=== PATIENT | female | born 1960 | race Caucasian/White ===

== ENCOUNTER 2023-09-02 09:43 | Emergency (ER) | payer OTHER, SELFPAY ==
[2023-09-02] VITALS (59 sets, daily range): BP systolic 63–139; BP diastolic 36–100; PULSE 73–126; RESP 11–29; TEMP 36.4–36.6; O2SAT 91–99
--- NOTE | ~2023-09-02 | US_ITS ---
US right upper quadrant INDICATION: Right upper quadrant pain. Emesis. PROCEDURE: Realtime right upper abdominal ultrasound. COMPARISON: No prior studies for comparison. FINDINGS: The pancreas is normal without focal mass or pancreatic ductal dilation. Liver echotexture is normal without focal mass or intrahepatic biliary dilatation. There is normal directional flow i n the portal vein. There are gallstones. Possible stone in the common duct. Common bile duct measures 7.4 mm. No sonog raphic Garner's sign. IMPRESSION: 1: Cholelithiasis with possible choledocholithiasis. Mild biliary dilatation. Consider cholecystitis in the appropriate clinical setting. Consider correlation with MRCP. Reviewed, dictated and finalized at location L. TABLE OPERATOR IMPRESSION: 1: Cholelithiasis with possible choledocholithiasis. Mild biliary dilatation. C onsider cholecystitis in the appropriate clinical setting. Consider correlation with MRCP.
--- NOTE | ~2023-09-02 | CT_ITS ---
EXAMINATION: CT abdomen pelvis w con DATE: 09/02/2023 11:33 INDICATION: Nausea vomiting and right upper quadrant abdominal pain TECHNIQUE: Computed tomography (CT) of the abdomen and pelvis was performed with 100 mL Omnipaque-350 intravenous contrast. Automated exposure control and iterative reconstruction technique were employe d. The dose-length product was 1344.67 mGy-cm. COMPARISON: None FINDINGS: Lung bases are clear. Heart size is normal. No pericardial or pleural effusion. There is a small dens ity along the cephalad-most images at the cavoatrial junction suggesting a possible central venous ca theter tip . Small sliding-type hiatal hernia. Multiple splenic ossifications consistent with old gra nulomatous disease. Focal hepatic steatosis at the ligamentum teres. Gallbladder, pancreas and left a drenal gland are normal. Main pancreatic duct and common bile duct are normal and there is no intrahe patic ductal or ductal dilation. 1.8 cm right adrenal nodule. 2.5 cm cyst at the upper pole of the ri ght kidney. There a few additional <5 mm likely cysts in both kidneys. There is moderate colonic dive rticulosis with a sigmoid predominance. There is no adjacent inflammatory change to suggest divertic ulitis. No bowel obstruction. The appendix is not visualized. No pericecal inflammatory change to sug gest acute appendicitis. Infraumbilical midline surgical scar. The uterus is not identified and has l ikely been surgically resected. Bladder is normal. No free intraperitoneal gas or fluid. No pathologi john enlarged abdominal or pelvic lymphadenopathy. IMPRESSION: 1. No acute intra-abdominal/pelvic process. 2. Small sliding-type hiatal hernia. 3. Diverticulosis. 4. Indeterminate 1.8 cm right adrenal nodule statistically most likely to represent an adenoma. Recom mend correlation with any prior outside imaging. If prior imaging is not available for comparison and patient has no prior history of malignancy would recommend 12 month follow-up pre and postcontrast a drenal protocol CT or MRI. If patient has a known prior history of malignancy would currently further evaluate with pre and postcontrast adrenal protocol CT or MRI. Reviewed, dictated and finalized at location A. NTORY COORDINATOR IMPRESSION: 1. No acute intra-abdominal/pelvic process. 2. Small sliding-type hiatal hernia. 3. Diverticulosis. 4. Indeterminate 1.8 cm right adrenal nodule statistically most likely to repre sent an adenoma. Recommend correlation with any prior outside imaging. If prior imaging is not available for comparison and patient has no prior history of ma lignancy would recommend 12 month follow-up pre and postcontrast adrenal protoc ol CT or MRI. If patient has a known prior history of malignancy would currentl y further evaluate with pre and postcontrast adrenal protocol CT or MRI.
--- NOTE | 2023-09-02 09:56 | ED.URI ---
HPI - URI/Sore Throat General Chief Complaint: Nausea/Vomiting/Diarrhea Stated Complaint: vomiting/ diarrhea Time Seen by Provider: 09/02/23 09:51 Source: patient and RN notes reviewed Mode of arrival: ambulatory Limitations: no limitations History of Present Illness MD elicited complaint: cough Onset (ago): day(s) (5) Consistency: intermittent Severity: moderate Description of mucous: clear Able to tolerate fluids by mouth: Yes Exacerbating factors: other (eating) Relieving factors: nothing Associated symptoms: headache, nausea, vomiting and diarrhea Treatments prior to arrival: none Related Data Home Medications Medication Instructions Recorded Confirmed Unable to Obtain Home Medications 09/02/23 09/02/23 Allergies Allergy/AdvReac Type Severity Reaction Status Date / Time lisinopril Allergy Cough Verified 09/02/23 09:53 [facility] Past Medical History Medical History (Updated 09/02/23 @ 15:39 by James Hoffmann MD) Diverticulitis Hypertension Hypothyroidism Ovarian cancer Surgical History Surgical History (Updated 09/02/23 @ 10:17 by James Hoffmann MD) H/O oophorectomy right ovary History of total abdominal hysterectomy Previous back surgery Social History Social History (Updated 09/02/23 @ 10:17 by James Hoffmann MD) Smoking status: Never smoker Exam Const: General: no acute distress, alert and ill appearing acutely Nutritional Appearance: well nourished and obese Orientation/consciousness: patient oriented x3 Limitations: no limitations HENMT: Head: normal to inspection Ears: external ears normal Face/Nose/Sinus: Normal external nose present Face and sinus: normal facial exam Mouth: Yes moist mucous membranes Eyes: Conjunctivae: conjunctivae normal Pupils: Equal, round and reactive pupils present EOM: EOMs intact bilaterally Neck: Neck: normal visual inspection Resp: Effort & Inspection: normal respiratory effort Auscultation: clear to auscultation bilaterally Cardio: Rate: regular rate Rhythm: regular rhythm GI: GI Palp: Yes Soft to palpation, Yes Tenderness to palpation present (GI) ( moderate right upper quadrant left lower quadrant, positive Garner sign) and Yes Guarding due to palpation present (GI) ( mild) Auscultation: normal bowel sounds Back/Spine/Pelvis: Cervical Spine: cervical ROM normal Thoracic/Lumbar Spine: thoraco-lumbar ROM normal Skin: General skin exam: normal color Rashes: no rashes Neuro: General: patient oriented x3, moves all extremities, no focal motor deficits and CN's II-XI intact bilaterally Speech: normal speech Gait exam (Neuro): Normal gait present Extrem: General: normal to inspection and no clubbing, cyanosis or edema Psych: Mental Status: mental status grossly normal Affect: normal affect Attitude: cooperative Course Course Emergency Course: patient received 2 L normal saline. She also received some Zofran and a potassium rider for low potassium. Vital Signs Vital signs: Vital Signs Temperature 36.4 C L 09/02/23 09:43 Pulse Rate 116 H 09/02/23 09:43 Respiratory Rate 20 09/02/23 09:43 Blood Pressure 139/90 09/02/23 09:43 Pulse Oximetry 95 09/02/23 09:43 Oxygen Delivery Room Air 09/02/23 09:43 Temperature 36.6 C 09/02/23 16:35 Pulse Rate 98 09/02/23 16:35 Respiratory Rate 25 H 09/02/23 16:35 Blood Pressure 109/80 09/02/23 16:35 Pulse Oximetry 95 09/02/23 16:35 Oxygen Delivery Room Air 09/02/23 16:35 Transfer Transfered to: [place] Accepting physician: Dr. Galvez and Lucia Galeas, MAGO MDM - URI/Sore Throat Differential Diagnosis Differential diagnosis: Likely upper respiratory infection, viral infection, influenza and other ( COVID, cholecystitis, electrolyte abnormality, anemia, diverticulitis, gastroenteritis) Lab Data Attestation: I reviewed the patient's lab results. 09/02/23 10:26 09/02/23 10:26 Labs: Lab Results 09/02/23 09/02/23 Ran
[2023-09-02] MEDS: SODIUM CHLORIDE 0.9% IV 1,000 ML 999 ML IV CONT ×2 (10:30→12:38)
[2023-09-02 10:33] LABS: Hematocrit 40.3 % (35.0-49.0); Hemoglobin 13.7 g/dL (12.0-15.0); Mean Corpuscular Hemoglobin 32.4 pg (27.0-31.0); Mean Corpuscular Volume 95.3 fL (78.0-102.0); Mean Platelet Volume 8.8 fl (9.2-11.8); Platelet Count Result 389 K/mm3 (150-420); Red Blood Count 4.23 M/mm3 (4.20-5.40); Red Cell Distribution Width 13.8 % (11.6-14.4); White Blood Count 5.4 K/mm3 (4.8-10.8)
[2023-09-02 10:45] LABS: Band Neutrophils Percent 8 % (0-6); Basophils Percent Manual 0 % (0-1); Eosinophils Absolute Manual 0.05 K/mm3 (0.02-0.5); Eosinophils Percent Manual 1 % (1-6); Lymphocytes Absolute Manual 1.13 K/mm3 (1.1-4.5); Lymphocytes Percent Manual 21 % (18-44); Metamyelocytes Percent 2 %; Monocytes Absolute Manual 0.27 K/mm3 (0.1-0.90); Monocytes Percent Manual 5 % (3-9); Myelocytes Percent 0 %; Neutrophils Absolute Manual 3.83 K/mm3 (1.7-7.2); Neutrophils Percent Manual 63 % (46-73); Platelet Estimate Adequate (Adequate); Total Cells Counted 100
[2023-09-02 10:46] LABS: Alanine Aminotransferase 38 U/L (14-59); Albumin Level 2.2 g/dL (3.4-5.0); Alkaline Phosphatase 56 U/L (46-116); Anion Gap 10 mmol/L (8-16); Aspartate Amino Transferase 33 U/L (15-37); Bilirubin Direct 0.1 mg/dL (0-0.2); Bilirubin,Total 0.3 mg/dL (0.00-1.00); Blood Urea Nitrogen 22 mg/dL (7-18); Calcium 8.1 mg/dL (8.5-10.1); Carbon Dioxide 27 mmol/L (21-32); Chloride 95 mmol/L (98-108); Estimated CRCL calculation 70 ml/min; Estimated Glomerular Filt Rate > 60; Glucose 141 mg/dL (70-99); Lipase 119 U/L (16-77); Osmolality Calculated 279 mOsm/kg (285-295); Sodium 132 mmol/L (136-145); Total Protein 5.4 g/dL (6.4-8.2)
[2023-09-02 10:49] LABS: Influenza A QL RT-PCR Negative (Negative); Influenza B QL RT-PCR Negative (Negative); SARS-CoV-2 RNA PCR Negative (Negative)
[2023-09-02 10:50] LABS: Lactic Acid Reflex 2.1 mmol/L (0.4-2.0)
[2023-09-02] MEDS: KCL 20 MEQ/SW 100 ML 100 ML 50 MEQ IVPB (11:02)
[2023-09-02] MEDS: ONDANSETRON INJ 4 MG/2 ML VIAL IV PUSH (13:23)
[2023-09-02 13:30] LABS: Reflex Lactic Acid Yes or No Add Lactic
[2023-09-02 14:40] LABS: CRP 2.7 mg/dL (0.0-0.9)
== END 2023-09-02 16:35 | disposition short-term general hospital (02) ==
PROVIDERS: Emergency Provider Emergency Medicine; PCP Internal Medicine
DX: K81.9 Cholecystitis, unspecified (principal); E87.1 Hypo-osmolality and hyponatremia; E87.6 Hypokalemia; I10 Essential (primary) hypertension; E03.9 Hypothyroidism, unspecified; Z85.43 Personal history of malignant neoplasm of ovary; Z20.822 Contact with and (suspected) exposure to COVID-19
CPT/HCPCS: 36415; 74177; 76705; 80053; 82248; 83605; 83690; 85025; 86140; 87636; 96361; 96365; 96366; 96375; 99285; J2405; J3480; J7030; Q9967

== ENCOUNTER 2023-09-02 17:23 | Observation (INO) | payer OTHER, SELFPAY ==
--- NOTE | ~2023-09-02 | MR_ITS ---
EXAMINATION: MR MRCP wo/w con/w 3D wo ind DATE: 09/03/2023 11:36 INDICATION: Abdominal pain., Cholelithiasis and possible choledocholithiasis. TECHNIQUE: Magnetic resonance imaging (MRI) of the abdomen was performed without and with 20 mL Multi michi intravenous contrast. Sequences included coronal T2-weighted SS-FSE, coronal T2-weighted FS SS- FSE, coronal T2-weighted FS FIESTA, axial T2-weighted FS FIESTA, axial T2-weighted FIESTA, sagittal T 2-weighted SS-FSE, axial and coronal T1-weighted dual-echo FSPGR, axial T2-weighted SS-FSE, axial T1- weighted LAVA, axial T2-weighted STIR FSE. Thick-slab T2-weighted FRFSE-XL images were obtained for m agnetic resonance cholangiopancreatography (MRCP). Rotating maximum intensity projection 3-D reconstr uctions of the volumetric data were created by the technologist. Postcontrast sequences included a ti me course of axial T1-weighted LAVA. COMPARISON: None. FINDINGS: ABDOMEN MRI: Heart size is normal. No pericardial or pleural effusion. The distal tip of a likely central venous c atheter is seen at the superior cavoatrial junction. Small sliding-type hiatal hernia. Liver is edwin l with no intrahepatic biliary ductal dilation. Multiple gallstones layering in the dependent aspect of the gallbladder which is dilated to 5.0 cm with mild edematous wall thickening versus very small a mount of pericholecystic fluid suspicion for acute cholecystitis. Numerous small low signal intensity splenic calcified splenic nodules consistent with old granulomatous disease. Pancreas and left adren al gland are normal. 1.8 cm right adrenal adenoma with diagnostic prominent signal dropout on opposed phase imaging consistent with intracellular lipid. A few bilateral T2 hyperintense nonenhancing mauro l cysts the largest measuring 2.8 cm on the right at the remaining less than 1 cm. There are few scat tered colonic diverticula without adjacent comparison to suggest diverticulitis. There is a large div erticulum arising from the junction of the second and third portions of the duodenum which measures u p to 8.2 x 5.8 cm in maximal transaxial dimensions. No bowel obstruction. No pathologically enlarged abdominal or upper pelvic lymphadenopathy. Severe lumbar and moderate thoracic spondylosis. Couple T1 hyperintense fat saturating hemangiomas in the thoracic spine. No pathologic marrow replacing proces s. ABDOMEN MRCP: Common bile duct is dilated to 9 mm in the proximal duct but which tapers smoothly at the distal duct with no intraluminal filling defects to suggest choledocholithiasis. The main pancreatic duct is nor mal. No intrahepatic ductal or ductal dilation. IMPRESSION: 1. Multiple gallstones within the dilated gallbladder with associated mild edematous gallbladder wall thickening versus minimal pericholecystic fluid suggestive of acute cholecystitis. 2. Common bile duct dilated to 9 mm without evident or obstructing lesion/choledocholithiasis or intr ahepatic biliary ductal dilation. 3. 1.8 cm intracellular lipid-containing right adrenal adenoma with characteristic signal dropout on opposed phase imaging. 4. Small sliding-type hiatal hernia. Reviewed, dictated and finalized at location A. LER TESTER IMPRESSION: 1. Multiple gallstones within the dilated gallbladder with associated mild brittny atous gallbladder wall thickening versus minimal pericholecystic fluid suggesti ve of acute cholecystitis. 2. Common bile duct dilated to 9 mm without evident or obstructing lesion/dea docholithiasis or intrahepatic biliary ductal dilation. 3. 1.8 cm intracellular lipid-containing right adrenal adenoma with characteris tic signal dropout on opposed phase imaging. 4. Small sliding-type hiatal hernia.
[2023-09-02 18:06] VITALS: BP 117/71; PULSE 78; RESP 16; TEMP 36.3; O2SAT 94
[2023-09-02 18:09] VITALS: BMI 35.2
--- NOTE | 2023-09-02 18:11 | PC.NURSE ---
This patient, Lamar Melendez, was admitted to Medical Room 345-01. Patient/family oriented to hospital policies and general routines including ID bracelet, bed and alarms, visiting hours, pain management, procedures, bathroom and other care routines, personal items, smoking policy, room service/diet, and visiting hours. Information on how to activate the Rapid Response Team has been discussed. Patient/Family are encouraged to report perceived risks to care and to ask questions if they do not understand what they are told or what they should do.
[2023-09-02] MEDS: SODIUM CHLORIDE 0.9% IV 1,000 ML 100 ML IV CONT (18:32)
--- NOTE | 2023-09-02 20:04 | PM.IMHP ---
H&P: HPI History of Present Illness Date/Time: 09/02/23 20:04 Chief Complaint: n/v Narrative: THIS IS A 62-YEAR-OLD FEMALE WITH PAST MEDICAL HISTORY SIGNIFICANT FOR OVARIAN CANCER, HYPERTENSION, HYPOTHYROIDISM. PATIENT PRESENTS TO THE EMERGENCY ROOM DUE TO NAUSEA VOMITING ABDOMINAL PAIN FOR SEVERAL DAYS UNABLE TO KEEP ANYTHING DOWN. PATIENT DENIES ANY FEVERS, RIGORS, CHILLS, HEMATEMESIS, MELENA, COFFEE-GROUND EMESIS. PRELIMINARY WORKUP WAS SIGNIFICANT FOR SODIUM 132, POTASSIUM 3.2, CHLORIDE 95, CT OF ABDOMEN AND PELVIS WAS REPORTED : EXAMINATION: CT abdomen pelvis w con DATE: 09/02/2023 11:33 INDICATION: Nausea vomiting and right upper quadrant abdominal pain TECHNIQUE: Computed tomography (CT) of the abdomen and pelvis was performed with 100 mL Omnipaque-350 intravenous contrast. Automated exposure control and iterative reconstruction technique were employed. The dose-length product was 1344.67 mGy-cm. COMPARISON: None FINDINGS: Lung bases are clear. Heart size is normal. No pericardial or pleural effusion. There is a small density along the cephalad-most images at the cavoatrial junction suggesting a possible central venous catheter tip . Small sliding-type hiatal hernia. Multiple splenic ossifications consistent with old granulomatous disease. Focal hepatic steatosis at the ligamentum teres. Gallbladder, pancreas and left adrenal gland are normal. Main pancreatic duct and common bile duct are normal and there is no intrahepatic ductal or ductal dilation. 1.8 cm right adrenal nodule. 2.5 cm cyst at the upper pole of the right kidney. There a few additional <5 mm likely cysts in both kidneys. There is moderate colonic diverticulosis with a sigmoid predominance.? There is no adjacent inflammatory change to suggest diverticulitis. No bowel obstruction. The appendix is not visualized. No pericecal inflammatory change to suggest acute appendicitis. Infraumbilical midline surgical scar. The uterus is not identified and has likely been surgically resected. Bladder is normal. No free intraperitoneal gas or fluid. No pathologically enlarged abdominal or pelvic lymphadenopathy. IMPRESSION: 1. No acute intra-abdominal/pelvic process. 2. Small sliding-type hiatal hernia. 3. Diverticulosis. 4. Indeterminate 1.8 cm right adrenal nodule statistically most likely to represent an adenoma. Recommend correlation with any prior outside imaging. If prior imaging is not available for comparison and patient has no prior history of malignancy would recommend 12 month follow-up pre and postcontrast adrenal protocol CT or MRI. If patient has a known prior history of malignancy would currently further evaluate with pre and postcontrast adrenal protocol CT or MRI. US right upper quadrant INDICATION: Right upper quadrant pain. Emesis. PROCEDURE: Realtime right upper abdominal ultrasound. COMPARISON:? No prior studies for comparison. FINDINGS: The pancreas is normal without focal mass or pancreatic ductal dilation.? Liver echotexture is normal without focal mass or intrahepatic biliary dilatation.? There is normal directional flow in the portal vein. There are gallstones. Possible stone in the common duct.? Common bile duct measures 7.4 mm.? No sonographic Garner's sign. IMPRESSION: 1: Cholelithiasis with possible choledocholithiasis. Mild biliary dilatation. Consider cholecystitis in the appropriate clinical setting. Consider correlation with MRCP. Review of Systems Review of Systems: NAUSEA, VOMITING, RIGHT UPPER QUADRANT PAIN Constitutional: Constitutional: Denies chills, Denies fatigue, Denies fever(s), Denies malaise and Reports poor appetite Eyes: Eyes: Denies change in vision ENT: Denies dysphagia, Denies vertigo, Denies dizziness and Denies odynophagia Respiratory: Respiratory: Denies dyspnea Gastrointestinal: Gastrointestinal: Reports abdominal pain, Denies melena, Denies hematochezia, Denies dyspepsia, Denies heartburn, Rep
[2023-09-02] MEDS: ONDANSETRON INJ 4 MG/2 ML VIAL IV PUSH (20:15)
[2023-09-02 21:13] VITALS: BP 128/73; PULSE 75; RESP 15; TEMP 36.2; O2SAT 93
[2023-09-03] MEDS: SODIUM CHLORIDE 0.9% IV 1,000 ML 100 ML IV CONT (00:19)
[2023-09-03] MEDS: HYDROmorphone HCL INJ (*CRX) 1 MG/ML SYR IV PUSH (00:19)
[2023-09-03] MEDS: ONDANSETRON INJ 4 MG/2 ML VIAL IV PUSH ×2 (00:19→18:43)
[2023-09-03] MEDS: diphenhydrAMINE HCl INJ 50 MG/ML VIAL IV PUSH ×2 (04:43→13:12)
[2023-09-03] MEDS: LORazepam INJ (*CRX) 2 MG/ML VIAL 1 MG IV PUSH ×2 (04:43→13:12)
[2023-09-03 05:59] VITALS: BP 129/76; PULSE 91; RESP 14; TEMP 36.4; O2SAT 97
[2023-09-03 08:52] LABS: Hemoglobin 12.4 g/dL (12.0-15.0); Mean Corpuscular HGB Conc 33.5 g/dl (32-36); Mean Corpuscular Hemoglobin 32.5 pg (26-34); Mean Corpuscular Volume 96.9 fl (80-100); Mean Platelet Volume 8.9 fl (7.4-10.4); Platelet Count Result 339 k/mm3 (150-375); Red Blood Count 3.82 M/mm3 (4.2-5.4); Red Cell Distribution Width 14.2 % (11.5-14.5); White Blood Count 4.6 K/mm3 (4.5-10.0)
[2023-09-03 09:08] LABS: Anion Gap 6 mmol/L (8-16); Blood Urea Nitrogen 17 mg/dL (7-17); Calcium 7.7 mg/dL (8.4-10.2); Carbon Dioxide 22 mmol/L (22-30); Chloride 103 mmol/L (98-107); Estimated CRCL calculation 118 ml/min; Estimated Glomerular Filt Rate > 60; Glucose 101 mg/dL (65-110); Lipase 530 U/L (23-300); Sodium 131 mmol/L (137-145)
[2023-09-03] MEDS: POTASSIUM CHLORIDE INJ 40 MEQ in SODIUM CHLORIDE 0.9% IV 500 ML 130 MEQ IVPB (12:50)
[2023-09-03] MEDS: CALCIUM GLUC 1,000 MG/NS 50 ML 1,000 MG/50 ML BAG 100 MG IVPB (13:06)
--- NOTE | 2023-09-03 13:16 | WPDGICN ---
Assessment and Plan Assessment and plan (1) Cholecystitis: Code(s): K81.9 - Cholecystitis, unspecified Status: Acute Assessment and Plan: she is here with n/v, abdominal pain and diarrhea, also had elevated lactic acid and inflammatory markers mrcp c/w cholecystitis, no stone in bile duct still symptomatic, will start antibiotic and consult surgery (2) N&V (nausea and vomiting): Code(s): R11.2 - Nausea with vomiting, unspecified Status: Acute Assessment and Plan: antiemetics prn (3) Abdominal pain: Code(s): R10.9 - Unspecified abdominal pain Status: Acute Assessment and Plan: this has improved (4) Diarrhea: Code(s): R19.7 - Diarrhea, unspecified Status: Acute Assessment and Plan: will collect stool samples (5) Ovarian cancer: Code(s): C56.9 - Malignant neoplasm of unspecified ovary Status: Acute Assessment and Plan: on remission per patient GI Consult Note Consult date/time: 09/03/23 13:16 Reason for consult: n/v, epigastric pain, diarrhea HPI: Lamar Melendez is a 62 year old female with history of diverticulitis last colonoscopy ~ 3 years ago, ovarian cancer with last treatment March- patient told that on remission, HTN. She came here with almost one week of upper abdominal discomfort then nausea and vomiting, progressively getting sicker and also had diarrhea which is unusual for her, she says that never had diarrhea like that. Blood work normal liver enzymes, lactic acid 2, crp 2.7, lipase 530. CT scan a/p ?no acute intra-abdominal/pelvic process. Small sliding-type hiatal hernia. Diverticulosis. Then ultrasound with cholelithiasis with possible choledocholithiasis. Mild biliary dilatation. I ordered MRCP that showed multiple gallstones within the dilated gallbladder with associated mild edematous gallbladder wall thickening versus minimal pericholecystic fluid suggestive of acute cholecystitis. Common bile duct dilated to 9 mm without evident or obstructing lesion/choledocholithiasis or intrahepatic biliary ductal dilation. 1.8 cm intracellular lipid-containing right adrenal adenoma Review of Systems Constitutional: Constitutional: Denies chills Eyes: Eyes: Denies blurry vision ENT: Reports Normal hearing present Cardiovascular: Cardiovascular: Denies chest pain Respiratory: Respiratory: Denies cough Gastrointestinal: Gastrointestinal: Reports abdominal pain, Reports diarrhea, Reports nausea and Reports vomiting Genitourinary: Genitourinary: Denies nocturia Musculoskeletal: Musculoskeletal: Denies myalgias Integumentary/Breasts: Skin/Breast: Denies rash Neurologic: Denies Abnormal speech present Psychiatric: Psychiatric: Denies anxiety [facility] Past Medical History Medical History (Updated 09/03/23 @ 13:25 by Jim Ellis MD) Cholecystitis Diarrhea Diverticulitis Hypertension Hypothyroidism Ovarian cancer Surgical History Surgical History (Updated 09/02/23 @ 10:17 by James Hoffmann MD) H/O oophorectomy right ovary History of total abdominal hysterectomy Previous back surgery Social History Social History (Updated 09/02/23 @ 10:17 by James Hoffmann MD) Smoking status: Never smoker Second hand tobacco smoke exposure: No Alcohol intake: never Substance use: never Substance use type: does not use Lack of Transportation: No Lack of Food: Never True Current Housing: I Have Housing Concerned About Future Housing: No Difficulty Paying Gas/Electric Bills: No Difficulty Paying for Meds: No Currently Unemployed: No Education: Decline to Answer Difficulty w/ Childcare or Family Care: No Spiritual care concerns: No Meds Home Medications and Allergies Home Medications Medication Instructions Recorded Confirmed Type carisoprodol 350 mg tablet 350 mg PO TID PRN muscle spasms 09/02/23 09/02/23 History diltiazem HCl 240 mg 240 mg PO HS 09/02
[2023-09-03 13:50] LABS: Alanine Aminotransferase 30 U/L (6-35); Albumin Level 2.3 g/dL (3.5-5.1); Alkaline Phosphatase 46 U/L (38-126); Aspartate Amino Transferase 46 U/L (14-36); Bilirubin,Total 0.3 mg/dL (0.2-1.3)
[2023-09-03 14:00] VITALS: BP 134/87; PULSE 104; RESP 16; TEMP 36.5; O2SAT 97
--- NOTE | 2023-09-03 14:24 | PM.IMPN ---
Progress Note: A&P Assessment and Plan (1) Abdominal pain: Code(s): R10.9 - Unspecified abdominal pain Status: Acute Assessment and Plan: RUQ US reviewed CT ABDOMEN AND PELVIS reviewed NPO IV FLUIDS Pain management GI consulted - ordered MRCP MRCP: 1. Multiple gallstones within the dilated gallbladder with associated mild edematous gallbladder wall thickening versus minimal pericholecystic fluid suggestive of acute cholecystitis. 2. Common bile duct dilated to 9 mm without evident or obstructing lesion/choledocholithiasis or intrahepatic biliary ductal dilation. 3. 1.8 cm intracellular lipid-containing right adrenal adenoma with characteristic signal dropout on opposed phase imaging. 4. Small sliding-type hiatal hernia. Gen surg consulted started on Rocephin for cholecystitis (2) N&V (nausea and vomiting): Code(s): R11.2 - Nausea with vomiting, unspecified Status: Acute Assessment and Plan: NPO, IVF supportive care (3) Acute hyponatremia: Code(s): E87.1 - Hypo-osmolality and hyponatremia Status: Inactive Assessment and Plan: normal saline IVF, continue to monitor (4) Acute hypokalemia: Code(s): E87.6 - Hypokalemia Status: Inactive Assessment and Plan: 3.1 today, replace IV and monitor (5) Ovarian cancer: Code(s): C56.9 - Malignant neoplasm of unspecified ovary Status: Acute Assessment and Plan: STATUS POST SURGERY AND CHEMOTHERAPY FOLLOW-UP IN OUTPATIENT SETTING Subjective Date/time seen: 09/03/23 14:24 Interval history: Patient reports she was more comfortable this morning, she received a dose of Dilaudid around midnight and was able to get some sleep which helped her quite a bit. She is reporting mild abdominal pain in RUQ with palpation but denies nausea like she was having before. MRCP done today and showed cholecystitis, gen surg now consulted by GI and started on Rocephin. Will continue NPO, supportive care and IVF. Review of Systems Review of Systems: NAUSEA, VOMITING, RIGHT UPPER QUADRANT PAIN Exam Const: General: comfortable, no acute distress, well developed, alert, awake, average body habitus and overweight Nutritional Appearance: average body habitus and overweight Orientation/consciousness: patient oriented x3 HENMT: Head: normal to inspection and atraumatic Ears: hearing grossly normal bilaterally Mouth: Yes moist mucous membranes Eyes: General: appearance normal, both eyes and all related structures Pupils: Equal, round and reactive pupils present EOM: EOMs intact bilaterally Neck: Neck: full ROM, no lymphadenopathy and no JVD Thyroid: thyroid normal Lymphatic: no lymphadenopathy noted Resp: Effort & Inspection: normal respiratory effort and able to speak in complete sentences Auscultation: clear to auscultation bilaterally Cardio: Jugular venous distension: no JVD Rate: regular rate Rhythm: regular rhythm Heart sounds: S1 normal heart sound present and S2 normal heart sound present GI: Inspection: obesity Skin: Rashes: no rashes Wounds: no wounds Neuro: General: patient oriented x3 and CN's II-XI intact bilaterally Cranial nerves: Yes CN's II-XII intact bilaterally Cognition (Neuro): normal cognition Speech: normal speech Sensory Exam: No Sensory deficit (Neuro) Extrem: General: normal to inspection, full ROM, no joint enlargement and no pedal edema Objective Data Vital Signs Vital Signs: Vital Signs - 24 hr 09/02/23 18:06 09/02/23 21:13 09/02/23 20:00 Temperature 97.4 F L 97.2 F L Pulse Rate 78 75 Respiratory Rate 16 15 Blood Pressure 117/71 128/73 Pulse Oximetry 94 93 Oxygen Delivery Room Air 09/03/23 05:59 09/03/23 08:00 09/03/23 14:00 Temperature 97.5 F L 97.7 F Pulse Rate 91 104 H Respiratory Rate 14 16 Blood Pressure 129/76 134/87 Pulse Oximetry 97 97 Oxygen Delivery Room Air Intake/Output Intake/Output: Intake &
--- NOTE | 2023-09-03 14:38 | PM.CNGS ---
Assessment and Plan Assessment and plan (1) Acute calculous cholecystitis: Code(s): K80.00 - Calculus of gallbladder with acute cholecystitis without obstruction Status: Acute Assessment and Plan: Imaging reviewed. CT abdomen and pelvis without any acute findings. RUQ US showed cholelithiasis with biliary dilatation concerning for choledocholithiasis. MRCP showed acute calculous cholecystitis, no common bile duct stone. LFTs and WBC normal. Her abdominal pain is better controlled with the IV Dilaudid. We would recommend to continue with IV antibiotics and IV fluids for hydration. Could consider trying to advance her diet if her nausea improves. Discussed surgical and nonoperative treatment options with the patient. Discussed the case with Dr. Coulter. We will keep her on IV antibiotics for now and continue to monitor her. If her pain improves and she is able to tolerate a diet, then she could consider going home on antibiotics and coming back as an outpatient in the near future to have a laparoscopic cholecystectomy. If her abdominal pain is uncontrolled or she is unable to tolerate a diet, then we may need to consider proceeding with surgical intervention sooner. Repeat labs tomorrow. (2) Ovarian cancer: Code(s): C56.9 - Malignant neoplasm of unspecified ovary Status: Chronic Assessment and Plan: Currently in remission. S/p hysterectomy and chemotherapy finished in March. (3) Diarrhea: Code(s): R19.7 - Diarrhea, unspecified Status: Acute Assessment and Plan: Significant diarrhea for the past week. GI ordered stool culture. Potassium low and has been replaced with 40 meq KCL IV today. Continue to monitor electrolytes and replace as needed. (4) N&V (nausea and vomiting): Code(s): R11.2 - Nausea with vomiting, unspecified Status: Acute Assessment and Plan: Seems to have improved some since admission. Continue IV fluids and could consider trying an oral diet if this continues to improve. See plan above. Plan I have discussed the patient's case and plan of care with Dr. Coulter. Thank you for allowing us to see the patient in consultation and we will continue to follow along with you. History of Present Illness Consult details Consult date: 09/03/23 Reason for consult: other (Acute cholecystitis) Requesting physician: Harlan Coulter MD Narrative: This is a 62-year-old woman who we have been asked to see in consultation for acute calculous cholecystitis. She reports having an onset of indigestion around bedtime one week ago. She had eaten ice cream and strawberries before bed. She reports developing epigastric abdominal pain that developed through the night, as well as nausea and multiple episodes of vomiting. The vomiting lasted 2 days and then she developed severe diarrhea. She reports more than 10 dark brown liquid bowel movements in a day. No recent antibiotic use or exposure to any sick contacts. She reports her abdominal pain has remained constant since a week ago to the point that she could hardly stand up straight. She was unable to keep any foods down and felt like anything even liquid would cause her to have diarrhea. She then presented to [facility] ([place] yesterday. CT scan of the abdomen and pelvis showed no acute intra-abdominal process. RUQ US showed cholelithiasis with biliary dilatation and common bile duct measuring 9 mm. Suggesting possible choledocholithiasis. Labs showed a normal white blood cell count, normal LFTs, lipase 119, and lactic acid 2.1. She was transferred to [facility] last night and GI was consulted. MRCP done today that showed acute cholecystitis. No common bile duct seen on MRCP. Labs repeated this morning and still showed a normal WBC count and normal LFTs. Lipase up to 530 today. Our service is now consulted. She is seen with her at the bedside. Reports her abdominal pain has improved following IV Dilaudid. Her nausea has improved this morning. She carson
[2023-09-03] MEDS: levoFLOXacin 750 MG TABLET PO (17:18)
--- NOTE | 2023-09-04 07:25 | PM.DS ---
DS: Admitting Diagnosis Discharge Date 09/03/23 Admitting Diagnosis abdominal pain DS: Discharge Diagnosis Discharge Diagnosis (1) Abdominal pain: Code(s): R10.9 - Unspecified abdominal pain Status: Acute Assessment and Plan: RUQ US reviewed CT ABDOMEN AND PELVIS reviewed NPO IV FLUIDS Pain management GI consulted - ordered MRCP MRCP: 1. Multiple gallstones within the dilated gallbladder with associated mild edematous gallbladder wall thickening versus minimal pericholecystic fluid suggestive of acute cholecystitis. 2. Common bile duct dilated to 9 mm without evident or obstructing lesion/choledocholithiasis or intrahepatic biliary ductal dilation. 3. 1.8 cm intracellular lipid-containing right adrenal adenoma with characteristic signal dropout on opposed phase imaging. 4. Small sliding-type hiatal hernia. Gen surg consulted - Dr. Yfn tucker with trial of tolerating low fat diet, if able to tolerate she can d/c home and follow up outpatient in 1 week for surgery Sent home on Levaquin 750 for one week per gen surgery recommendations (2) N&V (nausea and vomiting): Code(s): R11.2 - Nausea with vomiting, unspecified Status: Acute Assessment and Plan: PRN zofran at home supportive care (3) Acute hyponatremia: Code(s): E87.1 - Hypo-osmolality and hyponatremia Status: Inactive (4) Acute hypokalemia: Code(s): E87.6 - Hypokalemia Status: Inactive Assessment and Plan: IV replacement done on 09/03 prior to d/c (5) Ovarian cancer: Code(s): C56.9 - Malignant neoplasm of unspecified ovary Status: Chronic Assessment and Plan: STATUS POST SURGERY AND CHEMOTHERAPY FOLLOW-UP IN OUTPATIENT SETTING DS: Summary Hospital Course Hospital Course: Patient is a 62 YO female admitted for abdominal pain, nausea and vomiting. She has a PMH of diverticulitis last colonoscopy ~ 3 years ago, ovarian cancer with last treatment March, and HTN. She came here with almost one week of upper abdominal discomfort then nausea and vomiting, progressively getting sicker and also had diarrhea which is unusual for her. MRCP done and showed cholecystitis, gen surg consulted. We will switch her IV Rocephin to oral Levaquin 750 mg now and start her on a low fat diet. If she is able to tolerate a diet, then she is stable for d/c home and come back as an outpatient for a laparoscopic cholecystectomy next week. Patient to be scheduled with Dr. Coulter next week. Patient was discharged on 09/03/23 sometime in the evening, this discharge summary is being written the morning of 09/04/23 after patient has already been discharged. Status at Discharge Functional status at discharge: independent ambulation Overall status at discharge: patient is not back to baseline Time Spent with Patient Time attestation: Total time spent providing and/or coordinating discharge services: Exam Narrative: unable to complete exam at time of note as patient has already been d/c. See exam from 09/03/23 progress note for most recent. DS: Data Data Completed and Pending Labs on day of discharge: Labs from last 24 hours 09/03/23 08:41 WBC 4.6 RBC 3.82 L Hgb 12.4 Hct 37.0 MCV 96.9 MCH 32.5 MCHC 33.5 RDW 14.2 Plt Count 339 MPV 8.9 Sodium 131 L Potassium 3.0 L Chloride 103 Carbon Dioxide 22 Anion Gap 6 L BUN 17 Creatinine 0.50 L Estim Creat Clear Calc 118 Estimated GFR > 60 Glucose 101 Calcium 7.7 L Total Bilirubin 0.3 Direct Bilirubin 0.0 AST 46 H ALT 30 Alkaline Phosphatase 46 Total Protein 4.0 L Albumin 2.3 L Lipase 530 H Discharge Plan Discharge Attending physician on discharge: Jesus Dacosta Consulting providers: Jim Ellis; Harlan Coulter Discharging Clinician: Kay Danielson Anticipated Discharge Date/Time: 09/03/23 15:30 Patient Disposition: Home, Self-Care Activity: as tolerated
== END 2023-09-03 18:58 | disposition home or self-care (01) ==
PROVIDERS: Nurse Practitioner; Nurse Practitioner Family; Admitting Provider Internal Medicine; PCP Internal Medicine; Visit Provider Internal Medicine
DX: K80.00 Calculus of gallbladder with acute cholecystitis without obstruction (principal); C56.9 Malignant neoplasm of unspecified ovary; K57.92 Diverticulitis of intestine, part unspecified, without perforation or abscess without bleeding; K83.9 Disease of biliary tract, unspecified; K44.9 Diaphragmatic hernia without obstruction or gangrene; D35.01 Benign neoplasm of right adrenal gland; I10 Essential (primary) hypertension; E03.9 Hypothyroidism, unspecified; E87.1 Hypo-osmolality and hyponatremia; E87.6 Hypokalemia; F41.9 Anxiety disorder, unspecified; M62.838 Other muscle spasm; Z92.21 Personal history of antineoplastic chemotherapy; Z79.899 Other long term (current) drug therapy
CPT/HCPCS: 36415; 74183; 76376; 80048; 80076; 83690; 85027; 96374; 96375; 96376; A9270; A9577; G0378; J0612; J1170; J1200; J2060; J2405; J3480; J7030; J7040

== ENCOUNTER 2023-09-10 09:10 | Inpatient (IN) | payer OTHER, SELFPAY ==
[2023-09-08 14:00] VITALS: BMI 35.4
--- NOTE | 2023-09-08 14:11 | SUR.PREOP ---
Report to the Outpatient Waiting Room, entrance under the green pavilion located off [facility], at time _0630_ on date 09/10/23. Planned Procedure Time: 0830. Time changes happen often and if your time is changed the preop area will call you the afternoon before. - You and your visitor will be asked to self-screen and do not enter if you have any COVID symptoms. - A mask is optional within the hospital at this time. Patients may have clear liquids (water, carbonated beverages, clear teas, apple juice) until 3 hours prior to surgery with a maximum of 20 ounces. - No food from midnight until time of surgery before 0530 am - Infants may have breast milk until 4 hours before surgery, formula 6 hours prior to surgery. - Children will be allowed to drink immediately following surgery. If applicable, please bring a bottle or sippy cup to assist with drinking. Juice, water, soda, and popsicles are readily available. For infants on formula, please bring formula the day of surgery. Pacifiers are allowed. Take the following medications with a SIP of water the morning of surgery: gabapentin and metoprolol DO NOT STOP ANY OF YOUR OTHER PRESCRIPTION MEDICATIONS PRIOR TO SURGERY ?EXCEPT THE FOLLOWING Medications to discontinue per physician ___pt takes diltiazem at night Date to take last dose Please no make-up, nail german, hairspray, perfume, deodorant, or body powder the day of surgery. No jewelry (including any body piercings) or valuables the day of surgery, leave them at home. Please take a shower or bath the night before, or the morning of, surgery with an antibacterial soap. Wear comfortable, loose fitting clothing. Children are encouraged to wear pajamas. - Jewelry must be removed prior to entering the operating room. Rings and piercings that are not removed may be cut off. - The hospital will not accept responsibility for valuables. - Please leave all valuables, including medications, at home the day of surgery. If you are going home after surgery, a licensed p d driver must drive you home. - NO public transportation without another adult if you receive anesthesia. - We recommend that an adult stay with you for 24 hours following discharge. - We also recommend that you do not drive, make important decision, drink alcoholic beverages, or take any drugs that were not prescribed by your health care provider for at least 24 hours after your discharge time. For Pediatric surgeries, we recommend two adults accompany the child home. Follow any additional instructions given to you from your surgeon. If you or anyone in your household have experienced Covid symptoms in the past week, please notify your surgeon or the nurse liaison at the phone number below for possible testing. Telephone instructions given to __patient___and asked if any additional questions and then verbalized understanding. Patient advised to call surgeon office or pre surgery nurse liaison [phone] if any additional questions.
--- NOTE | 2023-09-09 15:47 | WPDANESEPPF ---
Anes - Initial Pre Proc Eval Procedure: Operation Date: 09/10/23 08:30 Proposed Procedures p Laparoscopic Cholecystectomy Possible Open - Chapito Vigil MD Date/Time: 09/09/23 15:47 Surgeon: Chapito Vigil MD Pre Op Diagnosis: acute calculous cholecystitis Patient Data Age: 63 Gender: F Height: 1.7 m Weight: 102.52 kg Allergies Allergy/AdvReac Type Severity Reaction Status Date / Time lisinopril AdvReac Unknown Cough Verified 09/10/23 07:02 Home Medications Medication Instructions Recorded Confirmed Type carisoprodol 350 mg tablet 350 mg PO TID PRN muscle spasms 09/02/23 09/08/23 History diltiazem HCl 240 mg 240 mg PO HS 09/02/23 09/08/23 History capsule,extended release 24 hr, controlled gabapentin 300 mg capsule 300 mg PO TID 09/02/23 09/10/23 History lorazepam 1 mg tablet 1 mg PO TID PRN Anxiety 09/02/23 09/08/23 History metoprolol succinate 100 mg 100 mg PO DAILY 09/02/23 09/10/23 History tablet,extended release 24 hr levofloxacin 750 mg tablet 750 mg PO DAILY 09/10/23 09/10/23 History Patient hx anesthesia problems: none Family hx anesthesia problems: none Results Review: All pre-operative results and documents have been reviewed as part of the pre-operative evaluation. [facility] Past Medical History Medical History (Updated 09/09/23 @ 15:47 by Dinh Peace, ) Diverticulitis Hypertension Hypothyroidism MORELIA (obstructive sleep apnea) CPAP Ovarian cancer S/p hysterectomy and chemotherapy Surgical History Surgical History H/O oophorectomy Bilateral oophorectomy when found to have ovarian cancer in October 2022 History of exploratory laparotomy at age 1 had exploratory surgery due to a duodenal obstruction History of partial hysterectomy Laparoscopic partial hysterectomy in 2015 Previous back surgery Family History Family History Sibling Gallbladder disease Social History Social History Smoking status: Never smoker Second hand tobacco smoke exposure: No Alcohol intake: never Substance use: never Substance use type: does not use Lack of Transportation: No Lack of Food: Never True Current Housing: I Have Housing Concerned About Future Housing: No Difficulty Paying Gas/Electric Bills: No Difficulty Paying for Meds: No Currently Unemployed: No Education: Decline to Answer Difficulty w/ Childcare or Family Care: No Living arrangements: with family Spiritual care concerns: No Anes - Eval Final PreProcedure Day of Procedure 09/09/23 15:47 Patient weight: obese Heart: regular rate and rhythm Lungs: clear to auscultation Airway: Mallampati scale class II Neurological: alert and oriented Last oral intake: >/= 8 hours ASA classification: III Emergent: no Anesthetic plan: proceed Anesthesia type and monitoring: general ETT and standard monitoring Results Review: All pre-operative results and documents have been reviewed as part of the pre-operative evaluation. Informed Consent: The patient's anesthetic plan and its attendant risks and benefits were discussed with the patient/family/POA. Questions were solicited and answers provided to the satisfaction of the patient/family/POA.
--- NOTE | ~2023-09-10 | MR_ITS ---
EXAMINATION: MR MRCP wo/w con/w 3D wo ind DATE: 09/10/2023 11:41 INDICATION: Acute pancreatitis. Abnormal liver function tests. TECHNIQUE: Magnetic resonance imaging (MRI) of the abdomen was performed without and with 20 mL Multi Nilesh intravenous contrast. Sequences included coronal T2-weighted FS FSE, coronal T2-weighted FSE, a xial T1-weighted LAVA, coronal FS FIESTA, axial dual-echo T1-weighted SPGR, coronal lava-FLEX, sagitt al T2-weighted FSE, axial T2-weighted FSE, and axial DWI. Thick-slab T2-weighted FSE images were obta ined for magnetic resonance cholangiopancreatography (MRCP). Maximum intensity projection 3-D reconst ructions of the volumetric data were created by the technologist. Postcontrast sequences included cor onal LAVA-flex and time course of axial T1-weighted LAVA. COMPARISON: MRCP 09/03/2023, ultrasound 09/02/2023, CT 09/02/2023 FINDINGS: ABDOMEN MRI: The liver is normal. The gallbladder is distended with gallstones and gallbladder wall t hickening. The pancreas and left adrenal gland are normal. There is a 15 mm mass in the right adrenal gland containing microscopic fat, consistent with an adenoma. There are cysts in the kidneys measuri ng up to 2.9 cm on the right. There is dilated small bowel without focal transition point, likely gerry namic ileus. There is a small sliding hiatal hernia. ABDOMEN MRCP: The common duct is mildly dilated to 8 mm. No choledocholithiasis. IMPRESSION: 1. Acute cholecystitis. 2. Mild common duct dilatation, stable from 09/03/2023. No choledocholithiasis. 3. Normal pancreas. 4. Dilated small bowel, likely adynamic ileus. Reviewed, dictated and finalized at location A. [employer]
[2023-09-10 06:45] VITALS: BP 111/59; PULSE 85; RESP 16; TEMP 36.2; O2SAT 97; BMI 36.2
--- NOTE | 2023-09-10 07:06 | ECG_ITS ---
Measurements Intervals [place] Rate: 79 P: 24 NM: 172 QRS: -10 QRSD: 98 T: 31 QT: 369 QTc: 424 Interpretive Statements SINUS RHYTHM VOLTAGE CRITERIA FOR LVH BASELINE ARTIFACT- I, II, III, AVR, AVL, AVF, V1 BORDERLINE ECG NO PREVIOUS ECG AVAILABLE FOR COMPARISON Electronically Signed On 09-10-2023 8:14:51 REGIONAL ENVIRONMENTAL MANAGER by Devin Chauhan D.O.
[2023-09-10] MEDS: ACETAMINOPHEN 500 MG TABLET 1000 MG PO (07:49)
--- NOTE | 2023-09-10 08:03 | WPDHPUPDATE1 ---
History and Physical Update Update Date/Time: 09/10/23 08:03 Dr. Coulter is unable to do the patient's surgery due to a scheduling conflict. With the patient's agreement, I have arranged to perform the procedure. I have talked to Dr. Coulter and reviewed the patient's chart from her recent admission. She tells me that she has continued to have upper abdominal pain after her discharge but not nearly as severe as when she came to the emergency room. She has also had multiple episodes of diarrhea. I explained to her that diarrhea could be caused by other problems than gallbladder disease. Hopefully, cholecystectomy will relieve the diarrhea but there is a possibility that it may not. Her exam shows still some right upper quadrant tenderness. I thoroughly discussed the procedure with the patient. All questions were answered. History and Physical has been reviewed, including an updated exam of the patient. There are NO changes in the patient's condition. Risks, benefits, and alternatives have been discussed and questions answered. Patient agrees to proceed with procedure.
[2023-09-10] MEDS: LACTATED RINGERS 1,000 ML 30 ML IV CONT (08:05)
[2023-09-10] MEDS: KETOROLAC 15 MG/ML VIAL (*BKC) IV PUSH (08:10)
[2023-09-10 08:24] LABS: Alanine Aminotransferase 610 U/L (6-35); Albumin Level 2.9 g/dL (3.5-5.1); Alkaline Phosphatase 283 U/L (38-126); Aspartate Amino Transferase 632 U/L (14-36); Bilirubin,Total 0.5 mg/dL (0.2-1.3); Lipase 1581 U/L (23-300)
[2023-09-10 08:50] LABS: Amylase < 30 U/L (30-110)
--- NOTE | 2023-09-10 09:23 | PM.IMHP ---
H&P: HPI History of Present Illness Date/Time: 09/10/23 09:23 Chief Complaint: Diarrhea and epigastric abdominal pain Narrative: The patient is a 63-year-old woman who presented to the emergency room in [place] with the following complaints-nausea vomiting diarrhea and cough. Her cough was felt to be an upper respiratory infection. She had a normal white blood cell count, normal liver enzymes, and a slightly elevated lipase of 119. She had a CT scan of the abdomen and pelvis that showed no acute abnormalities. The ER physician did note some right upper quadrant tenderness on exam. Being suspicious of gallbladder disease, the emergency room physician ordered an ultrasound of the right upper quadrant. This showed gallstones and possibly a stone in the bile duct. Patient was transferred to [facility] on 09/02. No surgeon was called prior to the transfer even though the patient clearly had gallbladder problems and possibly common bile duct stones. Patient came to [facility] later on 09/02 and general surgery was consulted on 09/03, but not until the afternoon of 09/03. Patient had an MRCP done on 09/03 which did show acute cholecystitis but no stones in the bile duct. Patient's condition was judged to be improved and she was discharged later in the day on 09/03/2023 with plans to go ahead with laparoscopic cholecystectomy today per Dr. Vigil. When seen in the preoperative area today, patient notes 1st that she had severe diarrhea the time that she was home and before coming today for cholecystectomy. On later questioning, she would then described persistent epigastric abdominal pain but not as bad as her initial presentation. Liver function tests and a lipase were drawn earlier today and all of these were markedly elevated, much more so than when she initially presented a week ago. Well her surgery was planned for today, her cholecystectomy has been postponed for evaluation of pancreatitis and common bile duct stones. She is admitted now for observation for this purpose. She does have some significant previous surgery. At age 1 she had laparotomy for what she described as duodenal obstruction. Then in 2014, she had a partial hysterectomy. In October of this year she was taken to surgery for bilateral salpingo-oophorectomy. At that surgery, she was discovered to have ovarian cancer. She had appropriate surgery, at another facility, and then later had chemotherapy which she finished in March. She has also had back surgery. Review of Systems Review of Systems: All systems reviewed & are unremarkable except as noted in HPI and below (HPI and those items noted below) Constitutional: Constitutional: Reports as per HPI, Denies chills and Denies fever(s) Cardiovascular: Cardiovascular: Denies chest pain, Denies diaphoresis, Denies dyspnea and Denies paroxysmal nocturnal dyspnea Respiratory: Respiratory: Denies chest congestion, Denies cough and Denies dyspnea Gastrointestinal: Gastrointestinal: Reports as per HPI, Reports abdominal pain, Reports change in bowel habits and Reports diarrhea Integumentary/Breasts: Skin/Breast: Denies lesions and Denies rash [facility] Past Medical History Medical History (Updated 09/10/23 @ 09:48 by Chapito Vigil MD) Diverticulitis Hypertension Hypothyroidism MORELIA (obstructive sleep apnea) CPAP Ovarian cancer S/p hysterectomy and chemotherapy Surgical History Surgical History (Updated 09/10/23 @ 09:48 by Chapito Vigil MD) H/O oophorectomy Bilateral oophorectomy when found to have ovarian cancer in October 2022 History of exploratory laparotomy at age 1 had exploratory surgery due to a duodenal obstruction History of partial hysterectomy Laparoscopic partial hysterectomy in 2014 Previous back surgery Family History Family History Sibling Gallbladder disease Social History Social History (Reviewed 09/10/23 @ 09:40 by Chapito
--- NOTE | 2023-09-10 10:40 | SUR.PREOP ---
7940- Dr. Vigil in to see patient and spouse Castro. informed patient and spouse that procedure cancelled for today and patient will be admitted to hospital for observation. MRCP to be obtained today and possible surgery tomorrow 09/11/2023. 0915- MRI screen form reviewed and signed with patient by this RN. Questions and concerns answered at this time. Patient denying additional needs and declining use of restroom at this time. 1035- Rounded on patient and Lamar found to be tearful and upset. Patient wanting to know if MRI to be performed today. Informed patient her MRI is going to be performed today. Patient denying other needs at this time. Comforted patient and offered restroom- patient declined restroom or any other needs at this time. 0654- Dr. Vigil at bedside with patient and spouse Castro discussing plan of care.
--- NOTE | 2023-09-10 11:00 | SUR.PREOP ---
1100- Patient to MRI via wheelchair by this RN with chart and saline locked IV.
--- NOTE | 2023-09-10 11:50 | SUR.PREOP ---
1146-Returned from MRI, awaiting inpatient room.
[2023-09-10 12:20] VITALS: BP 109/65; PULSE 78; RESP 18; TEMP 36.9; O2SAT 99
--- NOTE | 2023-09-10 12:46 | ADMGEN ---
This patient, Lamar Melendez, was admitted to [facility] Surg Room 309-01. Patient/family oriented to hospital policies and general routines including ID bracelet, bed and alarms, visiting hours, pain management, procedures, bathroom and other care routines, personal items, smoking policy, room service/diet, and visiting hours. Information on how to activate the Rapid Response Team has been discussed. Patient/Family are encouraged to report perceived risks to care and to ask questions if they do not understand what they are told or what they should do.
[2023-09-10 12:58] LABS: Hematocrit 34.3 % (37.0-47.0); Hemoglobin 10.6 g/dL (12.0-15.0); Mean Corpuscular HGB Conc 30.9 g/dl (32-36); Mean Corpuscular Hemoglobin 32.4 pg (26-34); Mean Corpuscular Volume 104.9 fl (80-100); Mean Platelet Volume 8.9 fl (7.4-10.4); Platelet Count Result 264 k/mm3 (150-375); Red Blood Count 3.27 M/mm3 (4.2-5.4); White Blood Count 6.4 K/mm3 (4.5-10.0)
[2023-09-10 13:16] LABS: Anion Gap 5 mmol/L (8-16); Blood Urea Nitrogen 8 mg/dL (7-17); Calcium 8.6 mg/dL (8.4-10.2); Carbon Dioxide 23 mmol/L (22-30); Chloride 108 mmol/L (98-107); Estimated CRCL calculation 118 ml/min; Estimated Glomerular Filt Rate > 60; Glucose 94 mg/dL (65-110); Potassium 4.2 mmol/L (3.4-5.0); Sodium 136 mmol/L (137-145)
[2023-09-10 14:00] VITALS: BP 109/66; PULSE 93; RESP 18; TEMP 36.8; O2SAT 94
[2023-09-10] MEDS: PIPERACILLN/TAZ 3.375GM/NS50ML 3.375 GM/50 ML BAG IVPB ×2 (14:07→17:17)
[2023-09-10] MEDS: GABAPENTIN 300 MG CAPSULE PO ×2 (14:08→17:18)
[2023-09-10] MEDS: CHOLESTYRAMINE (W/ SUGAR) 4 GM POWD.PACK PO ×2 (14:11→17:18)
--- NOTE | 2023-09-10 14:35 | PM.IMCN ---
Assessment and Plan Assessment and plan (1) Acute calculous cholecystitis: Code(s): K80.00 - Calculus of gallbladder with acute cholecystitis without obstruction Status: Acute (2) Elevated liver enzymes: Code(s): R74.8 - Abnormal levels of other serum enzymes Status: Acute (3) Acute biliary pancreatitis: Qualifiers: Acute pancreatitis complication: unspecified Qualified Code(s): K85.10 - Biliary acute pancreatitis without necrosis or infection Code(s): K85.10 - Biliary acute pancreatitis without necrosis or infection Status: Acute (4) N&V (nausea and vomiting): Qualifiers: Vomiting type: unspecified Qualified Code(s): R11.2 - Nausea with vomiting, unspecified Code(s): R11.2 - Nausea with vomiting, unspecified Status: Acute (5) MORELIA (obstructive sleep apnea): Code(s): G47.33 - Obstructive sleep apnea (adult) (pediatric) Status: Chronic (6) Diarrhea: Qualifiers: Diarrhea type: unspecified type Qualified Code(s): R19.7 - Diarrhea, unspecified Code(s): R19.7 - Diarrhea, unspecified Status: Acute Plan Problem List 1. acute cholecystitis planned laparoscopic choley tomorrow, 09/11 low fat diet in interim NPO at midnight pain management atb - held home p.o. levofloxacin, Zosyn initiated, and single dose Ancef. 2. elevated LFTs suspicion for elevation secondary to biliary colic and acute cholecystitis alk phos 283 (09/10) trend LFTs and alk phos 3. acute biliary pancreatitis GI consulted high suspicion for pancreatitis secondary to gallstones no evidence of pancreatitis on MRCP performed today trend lipase pain control 4. N/V r/t cholecystitis antiemetics low fat diet 5. diarrhea Questran PRN 6. MORELIA requesting CPAP be held for this evening, reassess if stay is to be extended. Home Meds/Chronic Conditions - Diltiazem, gabapentin, lorazepam, metoprolol continued. carisoprodol held. Diet: low fat, NPO at midnight GI Prophylaxis: not currently indicated DVT Prophylaxis: SCDs, hold pharm for planned procedure Lines: pIV Code Status: Full Code HPI Date of Consult Consult date: 09/10/23 Requesting Physician: Chapito Vigil MD Primary Care Provider: Suman Fry, Consult Narrative Reason for consult: Acute Biliary Pancreatitis Narrative: Lamar Melendez is a 63 year old female presented here for a scheduled cholecystectomy, however there was concern for acute biliary pancreatitis. Patient originally presented to [facility] ED on 09/02 for N/V/D and cough. W/u significant for mild elevation in lipase, CT of abdomen pelvis showed small sliding hiatal hernia/diverticulosis/indeterminate adrenal nodule, physical exam with +RUQ pain suspicious for gallbladder pathology, and RUQ US showed cholelithiasis with possible choledocholithiasis and mild biliary dilatation. Transferred to [facility] for MRCP. MRCP then done on 09/03 and showed multiple gallstones within the dilated gallbladder with associated mild edematous gallbladder wall thickening versus minimal pericholecystic fluid suggestive of acute cholecystitis without obstruction/dilation. Then discharged later on 09/03 with plan for outpatient laparoscopic cholecystectomy. Procedure planned for today, 09/10, however during care in preoperative area the patient endorsed persistent epigastric pain with diarrhea, typically occurring postprandial. LFTs and lipase obtained and significantly elevated compared to previous mild elevation. Repeat MRCP performed, no stones,lesions or pancreatitis noted, cholecystitis again demonstrated. Plan is to proceed with surgery tomorrow, 09/11. GI consulted and agree with lipase/LFT elevation secondary to gallstone pancreatitis. Patient does not currently endorse any abdominal pain, nausea, or vomiting. No current diarrhea but was NPO for procedure, states it typically occurs post-meals.
--- NOTE | 2023-09-10 15:57 | WPDGICN ---
Assessment and Plan Assessment and plan (1) Acute biliary pancreatitis: Qualifiers: Acute pancreatitis complication: unspecified Qualified Code(s): K85.10 - Biliary acute pancreatitis without necrosis or infection Code(s): K85.10 - Biliary acute pancreatitis without necrosis or infection Status: Acute Assessment and Plan: blood work again showed GS pancreatitis MRCP just completed, again with cholecystitis, no bile duct stone or lesion- no need of ercp on antibiotic timing of cholecystectomy by surgery (2) Acute calculous cholecystitis: Code(s): K80.00 - Calculus of gallbladder with acute cholecystitis without obstruction Status: Acute Assessment and Plan: on abx will need lap dea (3) Diarrhea: Qualifiers: Diarrhea type: unspecified type Qualified Code(s): R19.7 - Diarrhea, unspecified Code(s): R19.7 - Diarrhea, unspecified Status: Acute Assessment and Plan: monitor probably from recent abx use (4) Elevated liver enzymes: Code(s): R74.8 - Abnormal levels of other serum enzymes Status: Acute Assessment and Plan: probably from cholecystitis monitor (5) Ovarian cancer: Qualifiers: Laterality: unspecified laterality Qualified Code(s): C56.9 - Malignant neoplasm of unspecified ovary Code(s): C56.9 - Malignant neoplasm of unspecified ovary Status: Chronic GI Consult Note Consult date/time: 09/10/23 15:57 Reason for consult: GS pancreatitis, elevated lft HPI: Lamar Melendez is a 63 year old female who was admitted initially 09/02 with nausea and abdominal discomfort, diagnosed with GS pancreatitis confirmed by MRCP (no CBD stones) and treated medically, discharged with levaquin that caused diarrhea. Today she presented to have cholecystectomy as outpatient but labs revealed elevated transaminases and she noted mild epigastric discomfort but no nausea. Given abnormal blood work, surgeon decided to admit patient, start on antibiotics and repeat another MRCP. Surgerg was postponed today. She had previous surgeries including earlier this year bilateral salpingo-oophorectomy, at that surgery, she was discovered to have ovarian cancer.?? Review of Systems Constitutional: Constitutional: Denies chills Eyes: Eyes: Denies blurry vision ENT: Reports Normal hearing present Cardiovascular: Cardiovascular: Denies chest pain Respiratory: Respiratory: Denies cough Gastrointestinal: Gastrointestinal: Reports abdominal pain and Denies nausea Genitourinary: Genitourinary: Denies hematuria Musculoskeletal: Musculoskeletal: Denies myalgias Integumentary/Breasts: Skin/Breast: Denies rash Neurologic: Denies confusion Psychiatric: Psychiatric: Denies anxiety [facility] Past Medical History Medical History (Updated 09/10/23 @ 16:03 by Jim Ellis MD) Diverticulitis Elevated liver enzymes Hypertension Hypothyroidism MORELIA (obstructive sleep apnea) CPAP Ovarian cancer S/p hysterectomy and chemotherapy Surgical History Surgical History (Updated 09/10/23 @ 09:48 by Chapito Vigil MD) H/O oophorectomy Bilateral oophorectomy when found to have ovarian cancer in October 2022 History of exploratory laparotomy at age 1 had exploratory surgery due to a duodenal obstruction History of partial hysterectomy Laparoscopic partial hysterectomy in 2014 Previous back surgery Family History Family History Sibling Gallbladder disease Social History Social History Smoking status: Never smoker Second hand tobacco smoke exposure: No Alcohol intake: former Substance use: never Substance use type: does not use Lack of Transportation: No Lack of Food: Never True Current Housing: I Have Housing Concerned About Future Housing: No Difficulty Paying Gas/Electric B
[2023-09-10] MEDS: MORPHINE SULFATE (*CRX) 2 MG/ML INJ IV PUSH (17:18)
[2023-09-10 20:00] VITALS: BP 126/89; PULSE 107; RESP 18; TEMP 36.7; O2SAT 96
[2023-09-10] MEDS: dilTIAZem HCL CD 240 MG CAP.24HR PO (20:27)
[2023-09-10] MEDS: IBUPROFEN IV 800 MG/200 ML 800 MG/200 ML BAG 400 MG IVPB (20:32)
[2023-09-10] MEDS: LORazepam (*CRX) 1 MG TABLET PO (20:33)
[2023-09-10] MEDS: PROCHLORPERAZINE EDISYLATE 10 MG/2 ML VIAL IV PUSH (20:35)
--- NOTE | 2023-09-10 20:43 | PC.NURSE ---
spoke to MAGO Galeas regarding patient pain medication regimen, MAGO Galeas wants only ibuprofen and morphine ordered for patient at this time, patient was tearful and requesting hydromorphone, clarified with MAGO Johnson that patients pain regimen is ibuprofen and morphine at this time. Ativan given for tearfulness and anxiety PO. Compazine given IV for nausea.
[2023-09-10 20:48] VITALS: PULSE 107; RESP 18; O2SAT 96
[2023-09-10] MEDS: MORPHINE SULFATE (*CRX) 4 MG/ML INJ IV PUSH (22:29)
[2023-09-10 23:36] VITALS: BP 121/71; PULSE 89; RESP 16; TEMP 36; O2SAT 96
[2023-09-11] VITALS (16 sets, daily range): BP systolic 98–133; BP diastolic 49–91; PULSE 56–79; RESP 12–20; TEMP 35.9–37.1; O2SAT 73–100
--- NOTE | 2023-09-11 00:09 | PC.NURSE ---
spoke with MD Hernandez about patient request for hydromorphone instead of morphine. N.O hydromorphone 1 mg IV q3h prn for pain and d/c morphine orders per MD Scales.
[2023-09-11] MEDS: PIPERACILLN/TAZ 3.375GM/NS50ML 3.375 GM/50 ML BAG IVPB ×4 (00:14→17:09)
[2023-09-11] MEDS: HYDROmorphone HCL INJ (*CRX) 1 MG/ML SYR IV PUSH ×4 (00:25→21:51)
[2023-09-11] MEDS: CHLORHEXIDINE GLUCONATE 4% SOL 120 ML BTL 1 APPLIC TOPICAL (05:12)
--- NOTE | 2023-09-11 05:48 | PC.NURSE ---
patient up in shower using Hibiclens this morning
[2023-09-11 06:28] LABS: Basophils Absolute Auto 0.1 K/mm3 (0.0-0.1); Basophils Percent Auto 0.9 % (0.2-1.2); Eosinophils Absolute Auto 0.2 K/mm3 (0-0.3); Eosinophils Percent Auto 3.4 % (0-4.4); Hemoglobin 10.6 g/dL (12.0-15.0); Immature Granulocyte Absolute 0.04 K/mm3 (0.00-0.031); Immature Granulocyte Percent A 0.7 % (0-0.5); Lymphocytes Absolute Auto 1.61 K/mm3 (0.9-3.2); Lymphocytes Percent Auto 27.6 % (18.3-44.2); Mean Corpuscular HGB Conc 31.2 g/dl (32-36); Mean Corpuscular Hemoglobin 32.3 pg (26-34); Mean Corpuscular Volume 103.7 fl (80-100); Mean Platelet Volume 8.7 fl (7.4-10.4); Monocytes Absolute Auto 0.4 K/mm3 (0.1-0.6); Monocytes Percent Auto 6.2 % (2.6-8.5); Neutrophils Absolute Auto 3.6 K/mm3 (1.3-6.7); Neutrophils Percent Auto 61.2 % (45.5-73.1); Platelet Count Result 294 k/mm3 (150-375); Red Blood Count 3.28 M/mm3 (4.2-5.4); Red Cell Distribution Width 16.1 % (11.5-14.5); White Blood Count 5.8 K/mm3 (4.5-10.0)
[2023-09-11 06:41] LABS: INR 0.9; Prothrombin Time 12.4 Seconds (11.1-14.7)
[2023-09-11 06:42] LABS: Partial Thromboplastin Time 27.7 SECONDS (22.3-36.8)
[2023-09-11 06:45] LABS: Alanine Aminotransferase 467 U/L (6-35); Albumin Level 3.1 g/dL (3.5-5.1); Alkaline Phosphatase 257 U/L (38-126); Anion Gap 8 mmol/L (8-16); Aspartate Amino Transferase 369 U/L (14-36); Bilirubin,Total 0.5 mg/dL (0.2-1.3); Blood Urea Nitrogen 8 mg/dL (7-17); Calcium 8.9 mg/dL (8.4-10.2); Carbon Dioxide 22 mmol/L (22-30); Chloride 107 mmol/L (98-107); Estimated CRCL calculation 118 ml/min; Estimated Glomerular Filt Rate > 60; Glucose 101 mg/dL (65-110); Lipase 1551 U/L (23-300); Potassium 3.3 mmol/L (3.4-5.0); Sodium 137 mmol/L (137-145)
[2023-09-11] MEDS: GABAPENTIN 300 MG CAPSULE PO ×2 (08:08→17:05)
[2023-09-11] MEDS: METOPROLOL SUCCINATE EXT REL 100 MG TABCR PO (08:09)
[2023-09-11] MEDS: LACTATED RINGERS 1,000 ML 100 ML IV CONT (08:23)
--- NOTE | 2023-09-11 08:53 | PM.IMPN ---
Progress Note: A&P Assessment and Plan (1) Acute calculous cholecystitis: Code(s): K80.00 - Calculus of gallbladder with acute cholecystitis without obstruction Status: Acute Assessment and Plan: 1. acute cholecystitis planned laparoscopic choley tomorrow, 09/11 low fat diet in interim NPO at midnight pain management with IV dilaudid and IV ibuprofen Currently on Zosyn 09/11: Anticipating lap dea today (2) Elevated liver enzymes: Code(s): R74.8 - Abnormal levels of other serum enzymes Status: Acute Assessment and Plan: 2. elevated LFTs suspicion for elevation secondary to biliary colic and acute cholecystitis alk phos 283 (09/10) trend LFTs and alk phos 09/11: LFT's with slight decrease today. Lipase remains elevated at 1551. (3) Acute biliary pancreatitis: Qualifiers: Acute pancreatitis complication: unspecified Qualified Code(s): K85.10 - Biliary acute pancreatitis without necrosis or infection Code(s): K85.10 - Biliary acute pancreatitis without necrosis or infection Status: Acute Assessment and Plan: 3. acute biliary pancreatitis GI consulted high suspicion for pancreatitis secondary to gallstones no evidence of pancreatitis on MRCP performed today trend lipase pain control 09/11: GI following, no need for ERCP. Restarted IVF at 100 ml per hour. (4) N&V (nausea and vomiting): Qualifiers: Vomiting type: unspecified Qualified Code(s): R11.2 - Nausea with vomiting, unspecified Code(s): R11.2 - Nausea with vomiting, unspecified Status: Acute Assessment and Plan: 4. N/V r/t cholecystitis antiemetics low fat diet 09/11: NPO for surgery. (5) MORELIA (obstructive sleep apnea): Code(s): G47.33 - Obstructive sleep apnea (adult) (pediatric) Status: Chronic Assessment and Plan: 6. MORELIA requesting CPAP be held for this evening, reassess if stay is to be extended. (6) Diarrhea: Qualifiers: Diarrhea type: unspecified type Qualified Code(s): R19.7 - Diarrhea, unspecified Code(s): R19.7 - Diarrhea, unspecified Status: Acute Assessment and Plan: 5. diarrhea Questran PRN 09/11: Recently on Levaquin, will check c-diff. Plan Home Meds/Chronic Conditions - Diltiazem, gabapentin, lorazepam, metoprolol continued. carisoprodol held. Diet: low fat, NPO at midnight GI Prophylaxis: not currently indicated DVT Prophylaxis: SCDs, hold pharm for planned procedure Lines: pIV Code Status: Full Code Subjective Date/time seen: 09/11/23 08:53 Interval history: Lamar Melendez is a 63 year old female presented here for a scheduled cholecystectomy, however there was concern for acute biliary pancreatitis. Patient originally presented to [facility] ED on 09/02 for N/V/D and cough. W/u significant for mild elevation in lipase, CT of abdomen pelvis showed small sliding hiatal hernia/diverticulosis/indeterminate adrenal nodule, physical exam with +RUQ pain suspicious for gallbladder pathology, and RUQ US showed cholelithiasis with possible choledocholithiasis and mild biliary dilatation. Transferred to [facility] for MRCP. MRCP then done on 09/03 and showed multiple gallstones within the dilated gallbladder with associated mild edematous gallbladder wall thickening versus minimal pericholecystic fluid suggestive of acute cholecystitis without obstruction/dilation. Then discharged later on 09/03 with plan for outpatient laparoscopic cholecystectomy. Procedure planned for today, 09/10,? however during care in preoperative area the patient endorsed persistent epigastric pain with diarrhea, typically occurring postprandial. LFTs and lipase obtained and significantly elevated compared to previous mild elevation. Repeat MRCP performed, no stones,lesions or pancreatitis noted, cholecystitis again demonstrated. Plan is to proceed with surgery tomorrow, 09/11.? GI consulted an
[2023-09-11] MEDS: SODIUM CHLORIDE 0.9% IV 1,000 ML 100 ML IV CONT (09:14)
[2023-09-11] MEDS: POTASSIUM CHLORIDE INJ 40 MEQ in SODIUM CHLORIDE 0.9% IV 500 ML 130 MEQ IVPB (09:31)
--- NOTE | 2023-09-11 12:06 | WPDHPUPDATE1 ---
History and Physical Update Update Date/Time: 09/11/23 12:06 History and Physical has been reviewed, including an updated exam of the patient. There are NO changes in the patient's condition. Risks, benefits, and alternatives have been discussed and questions answered. Patient agrees to proceed with procedure.
--- NOTE | 2023-09-11 12:44 | PC.NURSE ---
Addendum entered by Rosario Little RN 09/11/23 12:45: pt left at 1205 Original Note: To OR per [Zaheer], IV [22 L wrist ]. Report given to [Zaheer].
--- NOTE | 2023-09-11 12:52 | WPDANESEPPF ---
Anes - Initial Pre Proc Eval Procedure: Operation Date: 09/10/23 08:30 Proposed Procedures p Laparoscopic Cholecystectomy Possible Open - Chapito Vigil MD Operation Date: 09/11/23 13:30 Proposed Procedures p Laparoscopic Cholecystectomy, Possible Open - Chapito Vigil MD Date/Time: 09/11/23 12:52 Surgeon: Chapito Vigil MD Pre Op Diagnosis: acute calculous cholecystitis Patient Data Age: 63 Gender: F Height: 1.7 m Weight: 105 kg Last Vital Signs Temp 36.3 C L 09/11/23 12:00 Pulse 70 09/11/23 12:00 Resp 20 09/11/23 12:00 BP 114/70 09/11/23 12:00 Pulse Ox 99 09/11/23 12:00 O2 Del Method Room Air 09/10/23 20:48 Allergies Allergy/AdvReac Type Severity Reaction Status Date / Time lisinopril AdvReac Unknown Cough Verified 09/10/23 07:02 Home Medications Medication Instructions Recorded Confirmed Type carisoprodol 350 mg tablet 350 mg PO TID PRN muscle spasms 09/02/23 09/08/23 History diltiazem HCl 240 mg 240 mg PO HS 09/02/23 09/08/23 History capsule,extended release 24 hr, controlled gabapentin 300 mg capsule 300 mg PO TID 09/02/23 09/10/23 History lorazepam 1 mg tablet 1 mg PO TID PRN Anxiety 09/02/23 09/08/23 History metoprolol succinate 100 mg 100 mg PO DAILY 09/02/23 09/10/23 History tablet,extended release 24 hr levofloxacin 750 mg tablet 750 mg PO DAILY 09/10/23 09/10/23 History Laboratory Tests 09/10/23 09/11/23 12:51 05:44 WBC 6.4 K/mm3 5.8 K/mm3 (4.5-10.0) (4.5-10.0) RBC 3.27 L M/mm3 3.28 L M/mm3 (4.2-5.4) (4.2-5.4) Hgb 10.6 L g/dL 10.6 L g/dL (12.0-15.0) (12.0-15.0) Hct 34.3 L % 34.0 L % (37.0-47.0) (37.0-47.0) MCV 104.9 H fl 103.7 H fl (80-100) (80-100) MCH 32.4 pg 32.3 pg (26-34) (26-34) MCHC 30.9 L g/dl 31.2 L g/dl (32-36) (32-36) RDW 16.0 H % 16.1 H % (11.5-14.5) (11.5-14.5) Plt Count 264 k/mm3 294 k/mm3 (150-375) (150-375) MPV 8.9 fl 8.7 fl (7.4-10.4) (7.4-10.4) Immature Gran % (Auto) 0.7 H % (0-0.5) Neut % (Auto) 61.2 % (45.5-73.1) Lymph % (Auto) 27.6 % (18.3-44.2) [place] % (Auto) 6.2 % (2.6-8.5) Eos % (Auto) 3.4 % (0-4.4) Baso % (Auto) 0.9 % (0.2-1.2) Lymph # (Auto) 1.61 K/mm3 (0.9-3.2) [place] # (Auto) 0.4 K/mm3 (0.1-0.6) Eos # (Auto) 0.2 K/mm3 (0-0.3) Baso # (Auto) 0.1 K/mm3 (0.0-0.1) Abs Immat Gran (auto) 0.04 H K/mm3 (0.00-0.031) Absolute Neuts (auto) 3.6 K/mm3 (1.3-6.7) Absolute Nucleated RBC 0.0 K/mm3 (0.0-0.012) Nucleated RBC % 0.0 % (0.0-0.2) PT 12.4 Seconds (11.1-14.7) INR 0.9 APTT 27.7 SECONDS (22.3-36.8) Sodium 136 L mmol/L 137 mmol/L (137-145) (137-145) Potassium 4.2 mmol/L 3.3 L mmol/L (3.4-5.0) (3.4-5.0) Chloride 108 H mmol/L 107 mmol/L (98-107) (98-107) Carbon Dioxide 23 mmol/L 22 mmol/L (22-30) (22-30) Anion Gap 5 L mmol/L 8 mmol/L (8-16) (8-16) BUN 8 D mg/dL 8 mg/dL (7-17) (7-17) Creatinine 0.50 L mg/dL 0.50 L mg/dL (0.7-1.0) (0.7-1.0) Estim Creat Clear Calc 118 ml/min 118 ml/min Estimated GFR > 60 > 60 (59 - ) (59 - ) Glucose 94 mg/dL 101 mg/dL (65-110) (65-110) Calcium 8.6 mg/dL 8.9 mg/dL (8.4-10.2) (8.4-10.2) Total Bilirubin 0.5 mg/dL (0.2-1.3) AST 369 H U/L (14-36) ALT 467 H U/L (6-35) Alkaline Phosphatase 257 H U/L (38-126) Total Protein 6.0 L g/dL (6.3-8.2) Albumin 3.1 L g/dL (3.5-5.1) Lipase 1551 H U/L (23-300) Patient hx anesthesia problems: none Family hx anesthesia problems: none Results Review: All pre-operative results and documents have been reviewed as part of the pre-operative evaluation. [facility] Past Medical History Medical History Diverticulitis Elevat
[2023-09-11] MEDS: LACTATED RINGERS 1,000 ML 30 ML IV CONT ×2 (13:20→15:04)
[2023-09-11] MEDS: BUPIVACAINE/EPINEPHRINE 0.5% 50 ML VIAL 40 ML INFILTRATE (13:49)
--- NOTE | 2023-09-11 15:06 | W.PM.PROC2 ---
Procedure Note - Detailed Date of Procedure 09/11/23 Pre-op Diagnosis acute calculous cholecystitis Post-op Diagnosis Same Procedure Performed Laparoscopic cholecystectomy Surgeon Chapito Vigil MD [employer] Frankie Leonardo, [facility] Anesthesia General and Local (0.5% Marcaine with epinephrine) Indications Patient has had multiple episodes of diarrhea as well as upper abdominal pain and vomiting. She has also had elevated liver enzymes and an elevated lipase. She had an MRCP a week ago which was negative for common bile duct stones. In response to her more elevated liver enzymes and lipase yesterday, she had a repeat MRCP which was negative for common bile duct stones as well but positive for cholecystitis. Patient is to been started on IV antibiotics and is taken to surgery now for laparoscopic cholecystectomy Findings Gallbladder showed acute and chronic inflammation. It was very distended with thickened bile. No definite stones were seen. The cystic duct was somewhat dilated but no stones were noted in the cystic duct. Liver appeared normal. No other significant findings were appreciated. Description of Procedure Patient was taken to surgery and induced into general anesthesia. The abdomen was prepped and draped. The initial trocar was in the epigastric area. Local was infiltrated 1st. Incision was made and then the varies needle was introduced into the peritoneal cavity. This was confirmed by saline drop technique. We then insufflated through the varies needle until the abdomen was adequately distended. The varies needle was removed and was replaced by a 5 mm applied Medical optical trocar. This confirmed intra-abdominal location and no adhesions in the area of the right upper abdomen. We then placed the remaining trocars in the usual fashion. The epigastric trocar was switched out for a 10 11 port. Patient was placed in reverse Trendelenburg. The gallbladder was encased in adhesions including a loop of small intestine. The adhesions were taken down near the fundus of the gallbladder. A laparoscopic aspirator was then introduced into the gallbladder and we removed as much of the bile as we could. The bile was very thick and unfortunately, very little was able to be removed. We closed the cholecystotomy with a Vicryl endoloop. I then elevated the gallbladder and took down the adhesions to the gallbladder and the undersurface of the liver. This included some small intestinal adhesions which were on the medial side of the midportion of the gallbladder. These came down without incident. There were additional adhesions and chronic inflammation with some edema in the area of the cholecystohepatic triangle. These adhesions were taken down using a combination of blunt sharp dissection as well as cautery. Bleeding was minimal. The cystic duct and cystic artery were clearly dissected. The cystic duct was somewhat dilated but not severely so. Once these 2 structures were dissected, the gallbladder was then dissected off the liver over its lower 3rd. Critical view was achieved. I then securely clipped and divided the cystic duct and cystic artery. The gallbladder was then elevated and careful dissection was used to free it from thickened and hypervascular peritoneum as well as the adhesions of the gallbladder to the gallbladder fossa on the liver. This dissection was slow but went well. We did not enter the gallbladder at all. Eventually the adhesions of the gallbladder to the liver were then taken down completely. And Endo-Catch bag was then introduced through the 10 11 port. The gallbladder was placed in the Endo-Catch bag. The gallbladder was then retrieved through the 10 11 port in the bag. I did have to enlarge the skin incision and somewhat dilate the fascia to accommodate the distended gallbladder with thickened wall. The gallbladder was then removed. No stones were palpated and the gallbladder was not opened. The 10 11 trocar was rep
[2023-09-11] MEDS: fentaNYL CITRATE INJ (*CRX) 100 MCG/2 ML VIAL 25 MCG IV PUSH ×4 (15:25→15:40)
--- NOTE | 2023-09-11 15:46 | WPDGIPROGNO ---
Progress Note: A&P Assessment and Plan (1) Acute biliary pancreatitis: Qualifiers: Acute pancreatitis complication: unspecified Qualified Code(s): K85.10 - Biliary acute pancreatitis without necrosis or infection Code(s): K85.10 - Biliary acute pancreatitis without necrosis or infection Status: Acute Assessment and Plan: mrcp no choledocholithiasis but acute cholecystitis lap dea no need of ercp (2) Acute calculous cholecystitis: Code(s): K80.00 - Calculus of gallbladder with acute cholecystitis without obstruction Status: Acute Assessment and Plan: by surgery team (3) Abdominal pain: Code(s): R10.9 - Unspecified abdominal pain Status: Acute (4) Elevated liver enzymes: Code(s): R74.8 - Abnormal levels of other serum enzymes Status: Acute Assessment and Plan: monitor Subjective Date/time seen: 09/11/23 09:46 Interval history: feeling bloated this morning Review of Systems Review of Systems: All systems reviewed & are unremarkable except as noted in HPI and below Exam Const: General: cooperative, comfortable, no acute distress, alert, awake and average body habitus Nutritional Appearance: overweight Orientation/consciousness: patient oriented x3 HENMT: Head: normocephalic Mouth: Yes Normal oral and palatal mucosa present Eyes: Conjunctivae: conjunctivae normal Pupils: Equal, round and reactive pupils present Neck: Neck: normal visual inspection, supple and nontender Resp: Effort & Inspection: normal respiratory effort Auscultation: clear to auscultation bilaterally Cardio: Rate: regular rate Rhythm: regular rhythm GI: Inspection: non-distended, obesity and scar GI Palp: Yes Soft to palpation and Yes Tenderness to palpation present (GI) (Epigastric) Skin: Lesions: no lesions Rashes: no rashes Neuro: General: no focal motor deficits Speech: normal speech Extrem: General: no clubbing, cyanosis or edema Psych: Appearance: well kempt Speech and movement: Clear speech present Attitude: cooperative Thought process: Normal thought process present Insight: Good insight present (Psych) Judgement: Good judgement present (Psych) Objective Data Vital Signs Vital Signs: Vital Signs - 24 hr 09/10/23 20:00 09/10/23 20:48 09/10/23 23:36 Temperature 98.1 F 96.8 F L Pulse Rate 107 H 107 H 89 Respiratory Rate 18 18 16 Blood Pressure 126/89 121/71 Pulse Oximetry 96 96 96 Oxygen Delivery Room Air Oxygen Flow Rate 09/11/23 04:00 09/11/23 08:09 09/11/23 08:00 Temperature 98.7 F 97.0 F L Pulse Rate 79 76 73 Respiratory Rate 18 20 Blood Pressure 119/67 110/62 Pulse Oximetry 94 98 Oxygen Delivery Oxygen Flow Rate 09/11/23 12:00 09/11/23 13:09 09/11/23 15:04 Temperature 97.4 F L 97.5 F L 97.0 F L Pulse Rate 70 73 65 Respiratory Rate 20 14 17 Blood Pressure 114/70 128/74 102/60 Pulse Oximetry 99 73 L 100 Oxygen Delivery Room Air Simple Face Mask Oxygen Flow Rate 12 09/11/23 15:15 09/11/23 15:19 09/11/23 15:35 Temperature Pulse Rate 73 68 66 Respiratory Rate 16 17 15 Blood Pressure 115/68 106/63 105/49 L Pulse Oximetry 100 100 91 Oxygen Delivery Simple Face Mask Simple Face Mask Room Air Oxygen Flow Rate 10 10 Intake/Output Intake/Output: Intake & Output 09/08/23 09/09/23 09/10/23 09/11/23 23:59 23:59 23:59 23:59 Intake Total 300 250 Balance 300 250 Meds/Results Medications: Active Medications Generic Name Dose Route Start Last Admin Trade Name Freq PRN Reason Stop Dose Admin Cholestyramine Resin 4 gm 09/10/23 18:00 09/11/23 08:10 Cholestyramine (W/ Sugar) 4 Gm Powd.Pack PO Not Given BID@1000,1800 [facility] Diltiazem HCl 240 mg 09/10/23 21:00 09/10/23 20:27 Diltiazem Hcl Cd 240 Mg Cap.24hr PO 240 mg HS MARIO Administration Fentanyl Citrate 25 mcg 09/11/23 12:54 09/11/23 15:40 Fentanyl Citrate Inj (*Crx) 100 Mcg/2 Ml Vial IV
--- NOTE | 2023-09-11 16:23 | PC.NURSE ---
Returned from OR per [ ]. Report received from [Stacey]. Arrived at [id number]
[2023-09-11] MEDS: KCL 40 MEQ/0.9% SOD CHL 1,000 ML 100 ML IV CONT (17:04)
[2023-09-11] MEDS: POTASSIUM CHLORIDE 20 MEQ ER TABLET PO (17:05)
[2023-09-11] MEDS: HYDROcodone/acetaminophen (*CRX) 10-325 MG TABLET 1 TAB PO (20:21)
[2023-09-11] MEDS: dilTIAZem HCL CD 240 MG CAP.24HR PO (20:22)
[2023-09-11] MEDS: ONDANSETRON INJ 4 MG/2 ML VIAL IV PUSH (21:50)
[2023-09-11] MEDS: LORazepam (*CRX) 1 MG TABLET PO (21:50)
[2023-09-12] MEDS: PIPERACILLN/TAZ 3.375GM/NS50ML 3.375 GM/50 ML BAG IVPB ×3 (01:00→12:09)
[2023-09-12] MEDS: HYDROmorphone HCL INJ (*CRX) 1 MG/ML SYR IV PUSH ×2 (01:12→09:43)
[2023-09-12 01:20] VITALS: BP 96/51; PULSE 69; RESP 16; TEMP 35.8; O2SAT 97
[2023-09-12] MEDS: KCL 40 MEQ/0.9% SOD CHL 1,000 ML 100 ML IV CONT (03:33)
[2023-09-12 04:31] VITALS: BP 144/85; PULSE 78; RESP 16; TEMP 36.1; O2SAT 100
[2023-09-12 06:56] LABS: Hematocrit 31.4 % (37.0-47.0); Hemoglobin 9.8 g/dL (12.0-15.0); Mean Corpuscular HGB Conc 31.2 g/dl (32-36); Mean Corpuscular Hemoglobin 32.7 pg (26-34); Mean Corpuscular Volume 104.7 fl (80-100); Mean Platelet Volume 8.8 fl (7.4-10.4); Platelet Count Result 276 k/mm3 (150-375); Red Cell Distribution Width 16.1 % (11.5-14.5); White Blood Count 8.7 K/mm3 (4.5-10.0)
[2023-09-12 07:11] LABS: Alanine Aminotransferase 370 U/L (6-35); Albumin Level 2.9 g/dL (3.5-5.1); Alkaline Phosphatase 334 U/L (38-126); Anion Gap 5 mmol/L (8-16); Aspartate Amino Transferase 348 U/L (14-36); Bilirubin,Total 0.4 mg/dL (0.2-1.3); Blood Urea Nitrogen 4 mg/dL (7-17); Calcium 8.9 mg/dL (8.4-10.2); Carbon Dioxide 25 mmol/L (22-30); Chloride 106 mmol/L (98-107); Estimated CRCL calculation 118 ml/min; Estimated Glomerular Filt Rate > 60; Glucose 147 mg/dL (65-110); Lipase 449 U/L (23-300); Potassium 4.2 mmol/L (3.4-5.0); Sodium 136 mmol/L (137-145)
--- NOTE | 2023-09-12 08:07 | PM.IMPN ---
Progress Note: A&P Assessment and Plan (1) Acute calculous cholecystitis: Code(s): K80.00 - Calculus of gallbladder with acute cholecystitis without obstruction Status: Acute Assessment and Plan: 1. acute cholecystitis planned laparoscopic choley tomorrow, 09/11 low fat diet in interim NPO at midnight pain management with IV dilaudid and IV ibuprofen Currently on Zosyn 09/11: Anticipating lap dea today 09/12: POD 1 from lap dea. Passing flatus, up independently in the room. Tolerating her full liquid diet. Okay to advance to low fat. (2) Elevated liver enzymes: Code(s): R74.8 - Abnormal levels of other serum enzymes Status: Acute Assessment and Plan: 2. elevated LFTs suspicion for elevation secondary to biliary colic and acute cholecystitis alk phos 283 (09/10) trend LFTs and alk phos 09/11: LFT's with slight decrease today. Lipase remains elevated at 1551. 09/12: Enzymes are decreasing as expected. (3) Acute biliary pancreatitis: Qualifiers: Acute pancreatitis complication: unspecified Qualified Code(s): K85.10 - Biliary acute pancreatitis without necrosis or infection Code(s): K85.10 - Biliary acute pancreatitis without necrosis or infection Status: Acute Assessment and Plan: 3. acute biliary pancreatitis GI consulted high suspicion for pancreatitis secondary to gallstones no evidence of pancreatitis on MRCP performed today trend lipase pain control 09/11: GI following, no need for ERCP. Restarted IVF at 100 ml per hour. 09/12: Lipase decreased significantly. Can stop IVF since tolerating liquids. (4) N&V (nausea and vomiting): Qualifiers: Vomiting type: unspecified Qualified Code(s): R11.2 - Nausea with vomiting, unspecified Code(s): R11.2 - Nausea with vomiting, unspecified Status: Acute Assessment and Plan: 4. N/V r/t cholecystitis antiemetics low fat diet 09/11: NPO for surgery. 09/12: No complaints today. Advanced to low fat diet. (5) MORELIA (obstructive sleep apnea): Code(s): G47.33 - Obstructive sleep apnea (adult) (pediatric) Status: Chronic Assessment and Plan: 6. MORELIA requesting CPAP be held for this evening, reassess if stay is to be extended. (6) Diarrhea: Qualifiers: Diarrhea type: unspecified type Qualified Code(s): R19.7 - Diarrhea, unspecified Code(s): R19.7 - Diarrhea, unspecified Status: Acute Assessment and Plan: 5. diarrhea Questran PRN 09/11: Recently on Levaquin, will check c-diff. 09/12: Passing flatus, no bowel movement yet. Plan Home Meds/Chronic Conditions - Diltiazem, gabapentin, lorazepam, metoprolol continued. carisoprodol held. Diet: low fat, NPO at midnight GI Prophylaxis: not currently indicated DVT Prophylaxis: SCDs, hold pharm for planned procedure Lines: pIV Code Status: Full Code Subjective Date/time seen: 09/12/23 08:07 Interval history: Lamar Melendez is a 63 year old female presented here for a scheduled cholecystectomy, however there was concern for acute biliary pancreatitis. Patient originally presented to [place] ED on 09/02 for N/V/D and cough. W/u significant for mild elevation in lipase, CT of abdomen pelvis showed small sliding hiatal hernia/diverticulosis/indeterminate adrenal nodule, physical exam with +RUQ pain suspicious for gallbladder pathology, and RUQ US showed cholelithiasis with possible choledocholithiasis and mild biliary dilatation. Transferred to [facility] for MRCP. MRCP then done on 09/03 and showed multiple gallstones within the dilated gallbladder with associated mild edematous gallbladder wall thickening versus minimal pericholecystic fluid suggestive of acute cholecystitis without obstruction/dilation. Then discharged later on 09/03 with plan for outpatient laparoscopic cholecystectomy. Procedure planned for today, 09/10,? however during care in preoper
[2023-09-12 09:06] VITALS: BP 121/71; PULSE 100; RESP 16; TEMP 36.8; O2SAT 95
[2023-09-12 09:37] VITALS: O2SAT 98
[2023-09-12] MEDS: GABAPENTIN 300 MG CAPSULE PO ×2 (09:37→12:09)
[2023-09-12] MEDS: POTASSIUM CHLORIDE 20 MEQ ER TABLET PO (09:37)
[2023-09-12 09:38] VITALS: PULSE 93
[2023-09-12] MEDS: METOPROLOL SUCCINATE EXT REL 100 MG TABCR PO (09:38)
[2023-09-12] MEDS: LORazepam (*CRX) 1 MG TABLET PO (09:43)
--- NOTE | 2023-09-12 11:06 | WPDANESPN ---
Anes - Prog Note Post-Op Date/Time: 09/12/23 11:06 Cardiovascular status: normal Respiratory status: normal Airway patency: baseline Mental status: baseline Post-Op hydration status: normal Vital Signs: Last Vital Signs Temp 98.3 F 09/12/23 09:06 Pulse 93 09/12/23 09:38 Resp 16 09/12/23 09:06 BP 121/71 09/12/23 09:06 Pulse Ox 95 09/12/23 09:06 O2 Del Method Nasal Cannula 09/11/23 16:05 O2 Flow Rate 3 09/11/23 16:05 Pain Score (VAS): 0 I/O: Intake & Output 09/11/23 09/12/23 09/12/23 23:59 07:59 15:59 Intake Total 1252 1979 360 Balance 1252 1979 360 Laboratory Tests 09/12/23 06:15 09/12/23 06:15 09/12/23 06:15 WBC 8.7 RBC 3.00 L Hgb 9.8 L Hct 31.4 L MCV 104.7 H MCH 32.7 MCHC 31.2 L RDW 16.1 H Plt Count 276 MPV 8.8 Sodium 136 L Potassium 4.2 Chloride 106 Carbon Dioxide 25 Anion Gap 5 L BUN 4 L Creatinine 0.50 L Estim Creat Clear Calc 118 Estimated GFR > 60 Glucose 147 H Calcium 8.9 Total Bilirubin 0.4 AST 348 H ALT 370 H Alkaline Phosphatase 334 H Total Protein 6.0 L Albumin 2.9 L Lipase 449 H Post-procedural complaints: none Patient Feedback: Patient satisfied with anesthetic care.
[2023-09-12] MEDS: HYDROcodone/acetaminophen (*CRX) 5-325 MG TABLET 1 TAB PO (12:09)
--- NOTE | 2023-09-12 14:36 | WPDGIPROGNO ---
Progress Note: A&P Assessment and Plan (1) Acute biliary pancreatitis: Qualifiers: Acute pancreatitis complication: unspecified Qualified Code(s): K85.10 - Biliary acute pancreatitis without necrosis or infection Code(s): K85.10 - Biliary acute pancreatitis without necrosis or infection Status: Acute Assessment and Plan: s/p lap dea, doing well home soon, per surgery (2) Acute calculous cholecystitis: Code(s): K80.00 - Calculus of gallbladder with acute cholecystitis without obstruction Status: Acute Assessment and Plan: will expect that liver enzymes will star trending down soon (3) Abdominal pain: Code(s): R10.9 - Unspecified abdominal pain Status: Acute Assessment and Plan: resolved (4) Elevated liver enzymes: Code(s): R74.8 - Abnormal levels of other serum enzymes Status: Acute Assessment and Plan: from cholecystitis repeat as outpatient Subjective Date/time seen: 09/12/23 14:36 Interval history: had cholecystectomy yesterday, she is doing great, tolerated diet and she feels like going home Review of Systems Review of Systems: All systems reviewed & are unremarkable except as noted in HPI and below Exam Const: General: comfortable and no acute distress HENMT: Face/Nose/Sinus: Normal nares present Eyes: General: appearance normal, both eyes and all related structures Neck: Neck: no JVD Resp: Auscultation: clear to auscultation bilaterally Cardio: Rate: regular rate Rhythm: regular rhythm GI: Inspection: non-distended GI Palp: Yes Soft to palpation Auscultation: normal bowel sounds Other: minimal tender from recent surgery Skin: General skin exam: normal color Neuro: General: gait normal Speech: normal speech Extrem: General: normal to inspection Psych: Mental Status: mental status grossly normal Objective Data Vital Signs Vital Signs: Vital Signs - 24 hr 09/11/23 15:04 09/11/23 15:15 09/11/23 15:19 Temperature 97.0 F L Pulse Rate 65 73 68 Respiratory Rate 17 16 17 Blood Pressure 102/60 115/68 106/63 Pulse Oximetry 100 100 100 Oxygen Delivery Simple Face Mask Simple Face Mask Simple Face Mask Oxygen Flow Rate 12 10 10 09/11/23 15:35 09/11/23 15:50 09/11/23 16:05 Temperature Pulse Rate 66 63 56 L Respiratory Rate 15 17 12 Blood Pressure 105/49 L 98/59 L 109/60 Pulse Oximetry 91 95 98 Oxygen Delivery Room Air Nasal Cannula Nasal Cannula Oxygen Flow Rate 3 3 09/11/23 16:20 09/11/23 16:35 09/11/23 17:05 Temperature 96.6 F L 96.9 F L 97.1 F L Pulse Rate 64 72 63 Respiratory Rate 18 18 20 Blood Pressure 100/63 121/60 106/91 H Pulse Oximetry 98 100 100 Oxygen Delivery Oxygen Flow Rate 09/11/23 18:05 09/11/23 20:38 09/12/23 01:20 Temperature 96.9 F L 96.7 F L 96.4 F L Pulse Rate 76 68 69 Respiratory Rate 20 16 16 Blood Pressure 101/63 133/80 96/51 L Pulse Oximetry 95 100 97 Oxygen Delivery Oxygen Flow Rate 09/12/23 04:31 09/12/23 09:06 09/12/23 09:38 Temperature 96.9 F L 98.3 F Pulse Rate 78 100 93 Respiratory Rate 16 16 Blood Pressure 144/85 H 121/71 Pulse Oximetry 100 95 Oxygen Delivery Oxygen Flow Rate Intake/Output Intake/Output: Intake & Output 09/09/23 09/10/23 09/11/23 09/12/23 23:59 23:59 23:59 23:59 Intake Total 300 1552 2750 Balance 300 1552 2750 Meds/Results Medications: Active Medications Generic Name Dose Route Start Last Admin Trade Name Freq PRN Reason Stop Dose Admin Acetaminophen 500 mg 09/11/23 16:12 Acetaminophen 500 Mg Tablet PO Q6H PRN Mild Pain (1-3) or Fever Hydrocodone Bitart/Acetaminophen 1 tab 09/11/23 16:12 09/12/23 12:09 Hydrocodone/Acetaminophen (*Crx) 5-325 Mg Tablet PO 1 tab Q4H PRN Administration Pain Rated 4-6 Hydrocodone Bitart/Acetaminophen 1 tab 09/11/23 16:12 09/11/23 20:21 Hydrocodone/Acetaminophen (*Crx) 10-325 Mg Tablet
--- NOTE | 2023-09-12 16:23 | PM.DS ---
DS: Admitting Diagnosis Discharge Date 09/12/2023 Admitting Diagnosis Acute on chronic cholecystitis with gallstones Elevated serum lipase Elevated liver function tests Diarrhea History ovarian cancer DS: Discharge Diagnosis Discharge Diagnosis (1) Acute calculous cholecystitis: Code(s): K80.00 - Calculus of gallbladder with acute cholecystitis without obstruction Status: Acute Assessment and Plan: Patient presented with liver function tests and serum lipase 3 times the level they were when discharged on 09/03/2023. Her surgery was to be done on 09/10/2023. This surgery was postponed to evaluate these abnormalities. Another MRCP was done and showed no pancreatitis and no evidence a common bile duct stones. Only finding was cholecystitis and gallstones. (2) Ovarian cancer: Qualifiers: Laterality: unspecified laterality Qualified Code(s): C56.9 - Malignant neoplasm of unspecified ovary Code(s): C56.9 - Malignant neoplasm of unspecified ovary Status: Chronic Assessment and Plan: Surgery was done in October of 2022. Finished chemotherapy in March of 2023 (3) Diarrhea: Qualifiers: Diarrhea type: unspecified type Qualified Code(s): R19.7 - Diarrhea, unspecified Code(s): R19.7 - Diarrhea, unspecified Status: Resolved Assessment and Plan: No diarrhea or any stools following her cholecystectomy 09/11/2023. (4) Hypertension: Qualifiers: Hypertension type: primary hypertension Qualified Code(s): I10 - Essential (primary) hypertension Code(s): I10 - Essential (primary) hypertension Status: Chronic (5) MORELIA (obstructive sleep apnea): Code(s): G47.33 - Obstructive sleep apnea (adult) (pediatric) Status: Chronic (6) H/O oophorectomy: Status: Chronic DS: Summary Hospital Course Hospital Course: Patient is a 63-year-old woman who initially presented to the emergency room in [place] with complaints of nausea vomiting diarrhea and a cough. Emergency room physician there notice some right upper quadrant tenderness. A CT scan of the abdomen and pelvis was done. This was negative but an ultrasound showed gallstones and possibly a gallstone in the common bile duct. She transferred to [facility] on 09/02/2023. She was started on antibiotics and an MRCP was done the next day 09/03/2023. This showed cholecystitis but no evidence of common bile duct stones. Patient was discharged with plans to come back and have cholecystectomy on 09/10. When she came back for her surgery, her lipase and LFTs were much higher than they were when she was discharged. Her surgery was postponed. GI was consulted. Hospital's was consulted and followed the patient while in the hospital. Another MRCP was done. This did not show any pancreatitis or common bile duct stones. Patient is only finding was cholecystitis with gallstones. Patient was then taken to surgery on the next day, 09/11/2023. She underwent laparoscopic cholecystectomy by Dr. Vigil. The surgery went well. She was watched again overnight and nearly all day on 09/12/2023. She was eating a low-fat diet and comfortable on oral pain medication. She had not had any bowel movements much less any diarrhea following her surgery. She is discharged today, 09/12/2023 in improved condition. Status at Discharge Functional status at discharge: independent ambulation Overall status at discharge: patient is progressing back to baseline Time Spent with Patient Time attestation: Total time spent providing and/or coordinating discharge services: Time spent: Less than 30 minutes DS: Data Data Completed and Pending Pending studies at discharge: Pending at discharge 09/11/23 14:29 Surgical [PTH] Routine Labs on day of discharge: Labs from last 24 hours 09/12/23 06:15 WBC 8.7 RBC 3.00 L Hgb 9.8 L Hct 31.4 L MCV 104.7 H MCH 32.7 MCHC 31.2 L RDW 16
== END 2023-09-12 17:25 | disposition home or self-care (01) | DRG 419 ==
LOC: ANH3MEDSUR 09-12 16:35
PROVIDERS: Admitting Provider Surgery; PCP Internal Medicine; Visit Provider Surgery
PROC: 0FT44ZZ Resection of Gallbladder, Percutaneous Endoscopic Approach (ICD-10-PCS; CPT 47562; principal; 2023-09-10 08:30)
DX: K80.00 Calculus of gallbladder with acute cholecystitis without obstruction (principal); R19.7 Diarrhea, unspecified; R74.8 Abnormal levels of other serum enzymes; J06.9 Acute upper respiratory infection, unspecified; E03.9 Hypothyroidism, unspecified; G47.33 Obstructive sleep apnea (adult) (pediatric); I10 Essential (primary) hypertension; Z92.21 Personal history of antineoplastic chemotherapy; Z85.43 Personal history of malignant neoplasm of ovary; Z90.710 Acquired absence of both cervix and uterus
CPT/HCPCS: 36415; 74183; 76376; 80048; 80053; 80076; 82150; 83690; 85025; 85027; 85610; 85730; 86850; 86900; 86901; 88304; 93005; A9270; A9577; C1713; J0780; J1100; J1170; J1741; J1885; J2250; J2270; J2405; J2543; J2704; J3010; J3480; J7030; J7040; J7120

== ENCOUNTER 2023-09-22 14:31 | Outpatient (CLI) | payer OTHER, SELFPAY ==
[2023-09-22 14:55] LABS: Hematocrit 35.6 % (37.0-47.0); Hemoglobin 11.1 g/dL (12.0-15.0); Mean Corpuscular HGB Conc 31.2 g/dl (32-36); Mean Corpuscular Hemoglobin 32.5 pg (26-34); Mean Corpuscular Volume 104.1 fl (80-100); Mean Platelet Volume 8.8 fl (7.4-10.4); Platelet Count Result 385 k/mm3 (150-375); Red Blood Count 3.42 M/mm3 (4.2-5.4); Red Cell Distribution Width 15.1 % (11.5-14.5); White Blood Count 6.3 K/mm3 (4.5-10.0)
[2023-09-22 15:08] LABS: Alanine Aminotransferase 62 U/L (6-35); Alkaline Phosphatase 163 U/L (38-126); Aspartate Amino Transferase 80 U/L (14-36); Bilirubin,Total 0.3 mg/dL (0.2-1.3); Lipase 574 U/L (23-300)
== END 2023-09-22 14:32 | disposition home or self-care (01) ==
PROVIDERS: PCP Internal Medicine; Visit Provider Surgery
DX: K85.10 Biliary acute pancreatitis without necrosis or infection (principal); D64.9 Anemia, unspecified; R74.8 Abnormal levels of other serum enzymes
CPT/HCPCS: 36415; 80076; 83690; 85027

== ENCOUNTER 2023-09-23 07:50 | Outpatient (CLI) | payer OTHER, SELFPAY ==
--- NOTE | ~2023-09-23 | US_ITS ---
EXAMINATION: US abdomen limited DATE: 09/23/2023 08:44 INDICATION: Right upper quadrant abdominal pain. Epigastric abdominal pain. TECHNIQUE: Multiple grayscale and Doppler ultrasound images of the abdomen were obtained. COMPARISON: MRCP 09/10/2023 FINDINGS: The visualized portions of the head, body, and tail of the pancreas are normal. The liver i s normal without focal lesion. There is normal flow in main portal vein. The gallbladder is absent. T here is heterogeneous echogenicity in the gallbladder fossa, consistent with recent surgery. The comm on duct is normal and measures 8 mm. IMPRESSION: 1. Surgical changes from recent cholecystectomy. Note that specificity for findings in the gallbladde r fossa is low. If there is clinical concern for abscess or biloma, consider CT. Reviewed, dictated and finalized at location A. [employer] IMPRESSION: 1. Surgical changes from recent cholecystectomy. Note that specificity for find ings in the gallbladder fossa is low. If there is clinical concern for abscess or biloma, consider CT.
== END 2023-09-23 07:51 | disposition home or self-care (01) ==
PROVIDERS: PCP Internal Medicine; Visit Provider Surgery
DX: R10.11 Right upper quadrant pain (principal); Z90.49 Acquired absence of other specified parts of digestive tract
CPT/HCPCS: 76705

== ENCOUNTER 2023-09-29 14:06 | Outpatient (CLI) | payer OTHER, SELFPAY ==
[2023-09-29 15:11] LABS: Alanine Aminotransferase 32 U/L (6-35); Alkaline Phosphatase 115 U/L (38-126); Amylase 49 U/L (30-110); Aspartate Amino Transferase 46 U/L (14-36); Bilirubin,Total 0.3 mg/dL (0.2-1.3); Lipase 512 U/L (23-300)
== END 2023-09-29 14:07 | disposition home or self-care (01) ==
LOC: ANHLAB 14:09
PROVIDERS: PCP Internal Medicine; Visit Provider Surgery
DX: Z90.49 Acquired absence of other specified parts of digestive tract (principal)
CPT/HCPCS: 36415; 80076; 82150; 83690